=== PATIENT | male | born 1945 | race Caucasian/White ===

== ENCOUNTER → 2019-07-04 08:53 | Outpatient (BNVA) | payer MEDICARE, OTHER, SELFPAY | PROVIDERS: Family Provider Family Medicine; PCP Family Medicine; Visit Provider Internal Medicine Rheumatology | DX: M06.9 Rheumatoid arthritis, unspecified (principal); M10.9 Gout, unspecified; Z79.899 Other long term (current) drug therapy; M15.9 Polyosteoarthritis, unspecified | CPT/HCPCS: 99213 ==

== ENCOUNTER → 2019-11-08 08:28 | Outpatient (BNVA) | payer MEDICARE, OTHER, SELFPAY | PROVIDERS: Family Provider Family Medicine; PCP Family Medicine; Visit Provider Internal Medicine Cardiovascular Disease | DX: E78.2 Mixed hyperlipidemia (principal); I25.10 Atherosclerotic heart disease of native coronary artery without angina pectoris; I10 Essential (primary) hypertension; I65.23 Occlusion and stenosis of bilateral carotid arteries; M06.00 Rheumatoid arthritis without rheumatoid factor, unspecified site; Z79.899 Other long term (current) drug therapy; Z51.81 Encounter for therapeutic drug level monitoring | CPT/HCPCS: 80053; 80061; 82248; 85007; 85027; 85651; 86140; 86480 ==

== ENCOUNTER → 2019-11-28 09:19 | Outpatient (BNVA) | payer MEDICARE, OTHER, SELFPAY | PROVIDERS: Family Provider Family Medicine; PCP Family Medicine; Visit Provider Internal Medicine Rheumatology | DX: M10.9 Gout, unspecified (principal); Z79.899 Other long term (current) drug therapy; M19.90 Unspecified osteoarthritis, unspecified site | CPT/HCPCS: 36415; 84550; 99214 ==

== ENCOUNTER 2019-11-29 12:48 | Outpatient (CLI) | payer MEDICARE, OTHER, SELFPAY ==
--- NOTE | 2019-11-29 12:56 | XR_ITS ---
WS: [id number] LEFT FOOT: 3 VIEW(S) TECHNIQUE: AP, oblique and lateral. HISTORY: rheumatoid arthritis COMPARISON: 01/03/2009 No acute fracture or dislocation. Very subtle lucencies along the first metatarsal head. Mild interphalangeal joint space narrowing. Calcifications along the plantar aponeurosis and extensive calcifications in the posterior and anteri or tibial arteries. Mild soft tissue edema around the foot. XR/XR foot LT min 3V* [id number] IMPRESSION: 1. Suspicious for very early changes of erosions along the first metatarsal he ad. 2. Extensive peripheral arterial disease and soft tissue edema.
--- NOTE | 2019-11-29 12:56 | XR_ITS ---
WS: [id number] RIGHT HAND: 3 VIEW(S) TECHNIQUE: PA, oblique and lateral. HISTORY: rheumatoid arthritis COMPARISON: 01/03/2009 Severe narrowing of the interphalangeal joint spaces. There is joint space narrowing bony hypertrophy and sclerosis. No erosions. Severe osteoarthritis at the first carpometacarpal joint. There is an er osion at the ulnar styloid. Degenerative changes of osteoarthritis at the radiocarpal joint. Hypertro phic osteophytes at the metacarpal heads. No osteopenia. XR/XR hand RT min 3V* [id number] IMPRESSION: 1. Advanced changes throughout the wrist and hand of osteoarthritis. 2. Erosions at the ulnar styloid can be seen with rheumatoid arthritis.
--- NOTE | 2019-11-29 12:56 | XR_ITS ---
WS: [id number] RIGHT FOOT: 3 VIEW(S) TECHNIQUE: AP, oblique and lateral. HISTORY: rheumatoid arthritis COMPARISON: 01/03/2009 Lucencies consistent with small erosions along the head of the first metatarsal. There is an addition al erosion at the base of the proximal first phalanx. Mild interphalangeal joint space narrowing. Normal tarsal/metatarsal alignment. No soft tissue abnormality or bone destruction. Small calcaneal spur. Vascular calcifications and soft tissue edema. XR/XR foot RT min 3V* [id number] IMPRESSION: 1. Suspicious for early erosions involving the first metatarsophalangeal joint secondary to rheumatoid arthritis. New since 2008. 2. Diffuse soft tissue edema and extensive peripheral arterial disease.
--- NOTE | 2019-11-29 12:56 | XR_ITS ---
WS: [id number] LEFT HAND: 3 VIEW(S) TECHNIQUE: PA, oblique and lateral. HISTORY: rheumatoid arthritis COMPARISON: None available. No acute fracture or dislocation. Severe interphalangeal joint space narrowing. Moderate narrowing of the first carpometacarpal joint. Deformity at the radial styloid is probably from an old healed fracture. Small osseous densities dist al to the ulna from old injury. Sclerotic changes with volume loss involving the scaphoid and lunate. Osteonecrosis of the proximal scaphoid. Small erosion involving the second metacarpal head. XR/XR hand LT min 3V* [id number] IMPRESSION: 1. Advanced degenerative changes of osteoarthritis at the wrist and hand. 2. Very early erosion at the second metacarpal head. 3. Prior injury with healing involving the radial styloid, osteonecrosis of th e proximal scaphoid and volume loss of the lunate. These are all chronic findin gs.
== END 2019-11-29 12:49 | disposition home or self-care (01) ==
LOC: RADWPI 12:53
PROVIDERS: Family Provider Family Medicine; PCP Family Medicine; Visit Provider Internal Medicine Rheumatology
DX: M06.9 Rheumatoid arthritis, unspecified (principal); M85.841 Other specified disorders of bone density and structure, right hand; M85.842 Other specified disorders of bone density and structure, left hand; M87.842 Other osteonecrosis, left hand
CPT/HCPCS: 73130; 73630

== ENCOUNTER 2020-04-28 04:31 | Emergency (ER) | payer MEDICARE, OTHER, SELFPAY ==
[2020-04-28 04:35] VITALS: BP 241/131; PULSE 70; RESP 18; TEMP 36.7; O2SAT 97; BMI 30.4
--- NOTE | 2020-04-28 04:59 | XRR_ITS ---
PROCEDURE INFORMATION: Exam: XR Chest, 1 View Exam date and time: 04/28/2020 5:07 AM Age: 75 years old Clinical indication: Other: HTN TECHNIQUE: Imaging protocol: XR of the chest Views: 1 view. COMPARISON: CR Chest 2 views* [id number] 01/25/2019 10:26 AM FINDINGS: Lungs: Lungs are well aerated without a focal area of consolidation. Pleural space: Unremarkable. No pleural effusion. No pneumothorax. Heart/Mediastinum: The cardiac silhouette appears enlarged, some of which is magnification related to the AP projection. Bones/joints: Unremarkable. XR/XR chest 1V portable [id number] IMPRESSION: Lungs are well aerated without a focal area of consolidation.
--- NOTE | 2020-04-28 05:00 | ECG_ITS ---
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
[2020-04-28 05:10] VITALS: BP 226/126; PULSE 59; RESP 18; O2SAT 97
[2020-04-28] MEDS: nitroglycerin 1 gm/inch oint Pkt 2 INCH TOPICAL (05:18)
[2020-04-28] MEDS: FUROsemide 10 mg/mL SDV 10mL 60 MG IVP (05:20)
[2020-04-28 05:22] LABS: Basophils % 0.7 %; Eosinophils # 0.1 10^3/uL (0.0-0.8); Eosinophils % 1.5 %; Hemoglobin 14.2 g/dL (11.7-16.6); Lymphocytes # 1.5 10^3/uL (0.8-4.8); Lymphocytes % 24.5 %; Mean Corpuscular HGB Conc 31.6 g/dL (30.0-36.0); Mean Corpuscular Hemoglobin 28.9 pg (28.0-34.0); Mean Corpuscular Volume 91.6 fL (80-94); Monocytes # 0.5 10^3/uL (0.2-0.9); Monocytes % 7.8 %; Neutrophils # 4.01 10^3/uL (1.8-7.7); Neutrophils % 65.3 %; Nucleated Red Blood Cells % 0 %; Platelet Count 142 10^3/cmm (130-400); Red Blood Count 4.91 10^6/uL (4.1-5.3); Red Cell Distribution Width 14.2 % (12.1-15.1); White Blood Count 6.1 10^3/uL (4.0-10.0)
[2020-04-28] MEDS: enalaprilat 1.25 mg/mL Inj IVP (05:22)
[2020-04-28 05:34] LABS: INR 0.96 (0.8-1.2)
[2020-04-28 05:46] LABS: Troponin(5th) Baseline 12 ng/L (0-15)
[2020-04-28 05:51] LABS: Alanine Aminotransferase 12 U/L (0-41); Albumin Level 4.4 g/dL (3.5-5.2); Alkaline Phosphatase 89 IU/L (40-130); Anion Gap 13.1 (5-19); Aspartate Amino Transferase 19 U/L (0-40); Blood Urea Nitrogen 9 mg/dL (8-23); Calcium 9.2 mg/dL (8.5-10.5); Carbon Dioxide 30 mmol/L (22-29); Chloride 101 mmol/L (98-107); Creatine Phosphokinase 147 U/L (39-308); Globulin 2.8 g/dL (1.3-4.6); Glucose 114 mg/dL (65-115); NT Pro B Type Natriuretic Pept 118 pg/mL (0-450); Osmolality Calculated 290 mOsm/kg (285-295); Potassium 4.1 mmol/L (3.5-5.1); Sodium 140 mmol/L (136-145); Total Bilirubin 0.5 mg/dL (0.15-1.2); Total Protein 7.2 g/dL (6.6-8.7)
[2020-04-28 05:52] VITALS: BP 184/108; PULSE 56; RESP 17; O2SAT 98
[2020-04-28 06:05] VITALS: BP 156/88; PULSE 58; RESP 13; O2SAT 98
--- NOTE | 2020-04-28 06:20 | ED_ITS ---
HPI - General Adult General: Chief complaint: General Medical Stated complaint: high bp Time Seen by Provider: 04/28/20 04:59 History of Present Illness: HPI narrative: 75-year-old male who says that he can feel his pulse in his ears this morning. He denies any headache, visual changes, chest discomfort, shortness of breath. He notes that because of this, he checked his blood pressure and it was very high. He says that his blood pressures been high on and off the past several days at home. His blood pressure was registering over 220 systolic on his home monitor. Onset (ago): day(s) Location: head Radiation: non-radiation Severity: mild Quality: other Pain Consistency: constant Relieving factors: none Exacerbating factors: none Associated symptoms: Deny chest pain, confusion, cough, diaphoresis, dyspnea, fevers/chills, rash or vomiting Treatments prior to arrival: other Review of Systems Const: Denies: diaphoresis Eyes: Denies: change in vision or blurry vision ENMT: Denies: odynophagia, swelling of lips/tongue, bleeding gums, dental pain, change in hearing, epistaxis, post nasal drip or sinus pain Card: Denies: chest pain Resp: Denies: dyspnea GI: Denies: vomiting : Denies: difficulty urinating, dysuria, urinary frequency, urinary urgency or hematuria Musc: Denies: neck pain, back pain, joint redness or joint warmth Skin/Breast: Denies: rash, pruritus or erythema Neuro: Denies: confusion Psych: Denies: anxiety, visual hallucinations or auditory hallucinations PFS ED PFSH: Medical History (Updated 04/28/20 @ 06:29 by Jace Isidro DO) Atherosclerotic heart disease of [place] coronary artery without angina pectoris Bilateral carotid artery stenosis CAD (coronary artery disease) FHx: total knee replacement Gout, arthritis High risk medication use Hyperlipidemia Hypertension Inflammatory arthritis Osteoarthritis Osteoarthritis involving multiple joints on both sides of body Other specified rheumatoid arthritis, multiple sites Seronegative rheumatoid arthritis Surgical History (Updated 11/28/19 @ 10:30 by Lester Pool MD) H/O carotid endarterectomy RIGHT SIDE 04/2019 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 Family History (Updated 11/28/19 @ 09:42 by Linda Adams LPN) Other CAD (coronary artery disease) Family history of premature coronary artery disease Hypertension Stroke Denies family history of Rheumatoid arthritis Lupus Social History Smoking and tobacco status: former smoker Quit status (tobacco): has quit using tobacco Year quit tobacco: 1979 Alcohol intake: never Marital status: History of recent travel: No (07/04/2019) Physical Exam Const: GENERAL APPEARANCE: well developed ORIENTATION/CONSCIOUSNESS: Yes oriented to person, Yes oriented to place and Yes oriented to time HENMT: COMMON NORMALS: normocephalic, external ears normal and Normal external nose present HEAD & SCALP: normocephalic NOSE: Normal external nose present and No nasal discharge present EXTERNAL EAR: Yes external ears normal MOUTH: tongue normal TEETH & GINGIVA: no abnormal tooth and associated gingiva THROAT: posterior oropharynx normal; no peritonsillar mass Eye: COMMON NORMALS: Equal, round and reactive pupils present and EOMs intact bilaterally EYELID: eyelids normal CONJUNCTIVA: Yes conjunctival abnormal positive bilateral conjunctival icterus (mild) PUPIL: Yes Equal, round and reactive pupils present Neck/C-Spine: COMMON NORMALS: full ROM GENERAL: No tracheal deviation CERVICAL SPINE: Yes normal cervical lordosis and No Cervical spine tenderness Chest: COMMONS NORMALS: normal inspection of the chest CHEST: No tenderness Resp: COMMON NORMALS: clear to auscultation bilaterally EFFORT & INSPECTION: No tachypneic, No respiratory distress, No retractions, No uses accessory muscles and No tracheal deviation AUSCULTATION: clear to auscultation bilaterally, no rhonchi, no wheezes and lung sounds not diminished Cardio: COMMON NORMALS: regular rate and regular rhythm RATE: regular rate RHYTHM: regular rhythm HEART SOUNDS: no murmurs PERIPHERAL PULSES: radial pulses present GI: INSPECTION: No abdominal distension AUSCULTATION: No Hyperactive bowel sounds present and No Hypoactive bowel sounds present PALPATION: No Guarding due to palpation present (GI) and No Rigid due to palpation PERCUSSION: no dullness to percussion and no tympanic to percussion Neuro: SENSORIUM/ORIENTATION: Yes oriented to person, Yes oriented to place and Yes oriented to time Psych: COMMON NORMALS: mental status grossly normal Skin: COMMON NORMALS: no rashes or lesions noted GENERAL SKIN EXAM: no rashes or lesions noted Course Vital Signs: Vital signs: Vital Signs Temperature 98.1 F 04/28/20 04:35 Pulse Rate 58 L 04/28/20 06:05 Respiratory Rate 13 04/28/20 06:05 Blood Pressure 156/88 04/28/20 06:05 Pulse Oximetry 98 04/28/20 06:05 MDM - General Adult MDM Narrative: Medical decision making narrative: 75-year-old male with hypertension at home. He is neurologically intact. He has no chest pain. His chest x-ray does not reveal pulmonary edema. His EKG shows a sinus rhythm, bradycardia with a normal axis. No ST changes. His first troponin is not elevated. Blood work is otherwise benign. He will be allowed home with treatment for his blood pressure. Lab Data: Labs: Lab Results 04/28/20 04/28/20 04/28/20 Range/Units 05:16 05:16 05:16 WBC 6.1 (4.0-10.0) 10^3/ uL RBC 4.91 (4.1-5.3) 10^6/u L Hgb 14.2 (11.7-16.6) g/dL Hct 45.0 (42.0-52.0) % MCV 91.6 (80-94) fL MCH 28.9 (28.0-34.0) pg MCHC 31.6 (30.0-36.0) g/dL RDW 14.2 (12.1-15.1) % Plt Count 142 (130-400) 10^3/c mm MPV 13.0 H (7.4-10.4) fL Neut % (Auto) 65.3 % Lymph % (Auto) 24.5 % [place] % (Auto) 7.8 % Eos % (Auto) 1.5 % Baso % (Auto) 0.7 % Neut # (Auto) 4.01 (1.8-7.7) 10^3/u L Lymph # (Auto) 1.5 (0.8-4.8) 10^3/u L [place] # (Auto) 0.5 (0.2-0.9) 10^3/u L Eos # (Auto) 0.1 (0.0-0.8) 10^3/u L Baso # (Auto) 0.0 (0.0-0.1) 10^3/u L Nucleated RBC % (a uto) 0 % Nucleated RBCs # 0.0 /100WBC PT 13.10 (12.1-14.9) SECO NDS INR 0.96 (0.8-1.2) Sodium 140 (136-145) mmol/L Potassium 4.1 (3.5-5.1) mmol/L Chloride 101 (98-107) mmol/L Carbon Dioxide 30 H (22-29) mmol/L Anion Gap 13.1 (5-19) BUN 9 (8-23) mg/dL Creatinine 0.7 (0.7-1.2) mg/dL GFR Calculation Not Reportable Glucose 114 (65-115) mg/dL Calculated Osmolal ity 290 (285-295) mOsm/k g Calcium 9.2 (8.5-10.5) mg/dL Total Bilirubin 0.5 (0.15-1.2) mg/dL AST 19 (0-40) U/L ALT 12 (0-41) U/L Alkaline Phosphata se 89 (40-130) IU/L Creatine Kinase 147 (39-308) U/L Troponin T Baselin e (0-15) ng/L NT-Pro-B Natriuret Pep 118 (0-450) pg/mL Total Protein 7.2 (6.6-8.7) g/dL Albumin 4.4 (3.5-5.2) g/dL Globulin 2.8 (1.3-4.6) g/dL Urine Color (Yellow) Urine Appearance (CLEAR) Urine pH (5-7) Ur Specific Gravit y (1.005-1.030) Urine Protein (Negative) Urine Glucose (UA) (Normal) Urine Ketones (Negative) Urine Blood (Negative) Urine Nitrate (Negative) Urine Bilirubin (Negative) Urine Urobilinogen (Negative) mg/dL Ur Leukocyte Shannon ase (Negative) 04/28/20 04/28/20 Range/Units 05:16 05:48 WBC (4.0-10.0) 10^3/ uL RBC (4.1-5.3) 10^6/u L Hgb (11.7-16.6) g/dL Hct (42.0-52.0) % MCV (80-94) fL MCH (28.0-34.0) pg MCHC (30.0-36.0) g/dL RDW (12.1-15.1) % Plt Count (130-400) 10^3/c mm MPV (7.4-10.4) fL Neut % (Auto) % Lymph % (Auto) % [place] % (Auto) % Eos % (Auto) % Baso % (Auto) % Neut # (Auto) (1.8-7.7) 10^3/u L Lymph # (Auto) (0.8-4.8) 10^3/u L [place] # (Auto) (0.2-0.9) 10^3/u L Eos # (Auto) (0.0-0.8) 10^3/u L Baso # (Auto) (0.0-0.1) 10^3/u L Nucleated RBC % (a uto) % Nucleated RBCs # /100WBC PT (12.1-14.9) SECO NDS INR (0.8-1.2) Sodium (136-145) mmol/L Potassium (3.5-5.1) mmol/L Chloride (98-107) mmol/L Carbon Dioxide (22-29) mmol/L Anion Gap (5-19) BUN (8-23) mg/dL Creatinine (0.7-1.2) mg/dL GFR Calculation Glucose (65-115) mg/dL Calculated Osmolal ity (285-295) mOsm/k g Calcium (8.5-10.5) mg/dL Total Bilirubin (0.15-1.2) mg/dL AST (0-40) U/L ALT (0-41) U/L Alkaline Phosphata se (40-130) IU/L Creatine Kinase (39-308) U/L Troponin T Baselin e 12 (0-15) ng/L NT-Pro-B Natriuret Pep (0-450) pg/mL Total Protein (6.6-8.7) g/dL Albumin (3.5-5.2) g/dL Globulin (1.3-4.6) g/dL Urine Color Straw (Yellow) Urine Appearance Clear (CLEAR) Urine pH 7 (5-7) Ur Specific Gravit y 1.005 (1.005-1.030) Urine Protein Neg (Negative) Urine Glucose (UA) Norm (Normal) Urine Ketones Negative (Negative) Urine Blood Neg (Negative) Urine Nitrate Negative (Negative) Urine Bilirubin Neg (Negative) Urine Urobilinogen Norm (Negative) mg/dL Ur Leukocyte Shannon ase Negative (Negative) Discharge Plan Discharge Patient Disposition: Home Clinical Impression: Hypertension Qualifiers: Hypertension type: essential hypertension Qualified Code(s): I10 - Essential (primary) hypertension Condition: Stable Prescriptions: New lisinopril 20 mg tablet 20 mg PO DAILY Qty: 30 RF: 0 No Action carvedilol 25 mg tablet 25 mg PO BID RF: 0 aspirin [Adult Aspirin Regimen] 81 mg tablet,delayed release (DR/EC) 81 mg PO DAILY RF: 0 omeprazole 20 mg capsule,delayed release(DR/EC) 20 mg PO DAILY RF: 0 simvastatin 80 mg tablet 80 mg PO DAILY Qty: 90 RF: 3 hydroxychloroquine 200 mg tablet 200 mg PO BID Qty: 60 RF: 5 Discharge Orders: Discharge Order (Routine); Ordered 04/28/20 Ordered By: Jace Isidro Referrals: Nicolás Alegre MD [Primary Care Provider] - 4-7 days Discharge Diet: Advance as tolerated Discharge Activity: Increase activity as tolerated Patient Instructions: Chronic Hypertension (ED) Activity Restrictions/Additional Instructions: Continue to check your blood pressure twice daily. Take the medication prescribed. Return to the emergency department for shortness of breath, chest discomfort, headache, mental status changes, weakness, other concerning symptoms. Coding Level of Care Code ED Correspondence Clerk for Tracy Mackay Exam Comprehensive
[2020-04-28 06:21] LABS: Add Urine Microscopic? NO
--- NOTE | 2020-04-28 06:21 | PC.NURSE ---
Blood pressure noted to be lower; nitro paste wiped off.
[2020-04-28 06:25] LABS: Bilirubin Urine Neg (Negative); Blood Urine Neg (Negative); Glucose Urine UA Norm (Normal); Ketones Urine Negative (Negative); Leukocyte Esterase Urine Negative (Negative); Nitrate Urine Negative (Negative); Protein Urine Neg (Negative); Specific Gravity, Urine 1.005 (1.005-1.030); Urine Appearance Clear (CLEAR); Urine Color Straw (Yellow); Urobilinogen Urine Norm (Negative); pH Urine 7 (5-7)
[2020-04-28 06:44] VITALS: BP 131/89; PULSE 63; RESP 18; O2SAT 98
== END 2020-04-28 06:46 | disposition home or self-care (01) ==
PROVIDERS: Emergency Provider Emergency Medicine; PCP Family Medicine
DX: I10 Essential (primary) hypertension (principal); Z79.82 Long term (current) use of aspirin; I25.10 Atherosclerotic heart disease of native coronary artery without angina pectoris; E78.5 Hyperlipidemia, unspecified; Z87.891 Personal history of nicotine dependence
CPT/HCPCS: 12345; 71045; 80053; 81003; 82550; 83880; 84484; 85025; 85610; 93005; 96374; 96375; 99283; J1940; J3490

== ENCOUNTER → 2020-05-06 08:15 | Outpatient (BNVA) | payer MEDICARE, OTHER, SELFPAY | PROVIDERS: PCP Family Medicine; Visit Provider Internal Medicine Cardiovascular Disease | DX: E78.2 Mixed hyperlipidemia (principal) | CPT/HCPCS: 80061 ==

== ENCOUNTER → 2020-05-27 14:59 | Outpatient (BNVA) | payer MEDICARE, OTHER, SELFPAY | PROVIDERS: PCP Family Medicine; Visit Provider Internal Medicine Rheumatology | DX: M15.9 Polyosteoarthritis, unspecified (principal); Z79.899 Other long term (current) drug therapy; Z87.891 Personal history of nicotine dependence; M10.9 Gout, unspecified | CPT/HCPCS: 99213 ==

== ENCOUNTER 2020-06-12 07:56 | Outpatient (CLI) | payer MEDICARE, OTHER, SELFPAY ==
--- NOTE | 2020-06-12 08:00 | USCV_ITS ---
Nicolás Lazo Age: 75 Gender: M : 1945 Exam Date: 06/12/2020 08:22 Ordering Phys: Eze Camilo MD ([email or web address]) Technologist: Nicky Ruiz [place] [facility] [place]ication: STENOSIS Risk Factors: Previous Vascular Surgery: BILAT Right Brachial BP: / Left Brachial BP: / Right Left Velocity (cm/s) Spectral Plaque Velocity (cm/s) Spectral Plaque Syst/Diast Broadening Syst/Diast Broadening 87.10/ 30.90 Prox CCA 86.00 / 25.40 88.20/ 22.10 Mid CCA 87.10 / 28.70 90.40/ 26.50 Distal CCA 93.70 / 30.90 87.10/ 23.20 Prox ICA 68.40 / 17.60 81.60/ 26.50 Mid ICA 81.60 / 26.50 75.00/ 24.30 Distal ICA 84.90 / 32.00 118.00 ECA 76.10 0.93 ICA/CCA 0.97 Antegrade Vertebral Antegrade 28.70/ 11.00 cm/s 55.10/ 19.80 cm/s FINDINGS Minimal plaques at the bifurcations bilaterally Intimal thickening in the common carotid and internal carotid arteries bilaterally Antegrade flow in the vertebral arteries bilaterally Normal Doppler flow velocities in the external carotid arteries bilaterally CONCLUSIONS Minimal plaques at the bifurcations bilaterally with no significant stenosis. Intimal thickening in the common carotid and internal carotid arteries bilaterally No significant stenosis or any unstable lesions based on the above findings Dr Eze Camilo MD [facility] (Electronically Signed) Final Date: 12 June 2020 18:53 S
== END 2020-06-12 07:57 | disposition home or self-care (01) ==
LOC: US 08:02
PROVIDERS: PCP Family Medicine; Visit Provider Internal Medicine Cardiovascular Disease
DX: I65.23 Occlusion and stenosis of bilateral carotid arteries (principal)
CPT/HCPCS: 93880

== ENCOUNTER → 2020-10-07 09:45 | Outpatient (BNVA) | payer MEDICARE, OTHER, SELFPAY | PROVIDERS: PCP Family Medicine; Visit Provider Internal Medicine Rheumatology | DX: M10.9 Gout, unspecified (principal); M06.00 Rheumatoid arthritis without rheumatoid factor, unspecified site; Z79.899 Other long term (current) drug therapy; M15.9 Polyosteoarthritis, unspecified; C43.9 Malignant melanoma of skin, unspecified; Z87.891 Personal history of nicotine dependence | CPT/HCPCS: 99214 ==

== ENCOUNTER → 2021-01-07 09:13 | Outpatient (BNVA) | payer MEDICARE, OTHER, SELFPAY | PROVIDERS: PCP Family Medicine; Visit Provider Internal Medicine Rheumatology | DX: M06.00 Rheumatoid arthritis without rheumatoid factor, unspecified site (principal); M10.9 Gout, unspecified; M15.9 Polyosteoarthritis, unspecified; Z79.899 Other long term (current) drug therapy | CPT/HCPCS: 36415; 80076; 82565; 84550; 85025; 86140 ==

== ENCOUNTER → 2021-01-20 09:41 | Outpatient (BNVA) | payer MEDICARE, OTHER, SELFPAY | PROVIDERS: PCP Family Medicine; Visit Provider Internal Medicine Rheumatology | DX: M10.9 Gout, unspecified (principal); M06.00 Rheumatoid arthritis without rheumatoid factor, unspecified site; M15.9 Polyosteoarthritis, unspecified; Z79.899 Other long term (current) drug therapy; D69.6 Thrombocytopenia, unspecified; Z96.651 Presence of right artificial knee joint; Z87.891 Personal history of nicotine dependence | CPT/HCPCS: 99214 ==

== ENCOUNTER → 2021-04-21 09:23 | Outpatient (BNVA) | payer MEDICARE, OTHER, SELFPAY | PROVIDERS: PCP Family Medicine; Visit Provider Internal Medicine Rheumatology | DX: D69.6 Thrombocytopenia, unspecified (principal); M19.90 Unspecified osteoarthritis, unspecified site; Z79.899 Other long term (current) drug therapy | CPT/HCPCS: 36415; 85049 ==

== ENCOUNTER → 2021-04-22 16:48 | Outpatient (BNVA) | payer MEDICARE, OTHER, SELFPAY | PROVIDERS: PCP Family Medicine; Visit Provider Internal Medicine Rheumatology | DX: M19.90 Unspecified osteoarthritis, unspecified site (principal); D69.6 Thrombocytopenia, unspecified; Z79.899 Other long term (current) drug therapy | CPT/HCPCS: 85049 ==

== ENCOUNTER → 2021-05-14 08:57 | Outpatient (BNVA) | payer MEDICARE, OTHER, SELFPAY | PROVIDERS: PCP Family Medicine; Visit Provider Internal Medicine Cardiovascular Disease | DX: E78.2 Mixed hyperlipidemia (principal); E78.5 Hyperlipidemia, unspecified | CPT/HCPCS: 80061 ==

== ENCOUNTER 2021-07-07 15:26 | Outpatient (CLI) | payer MEDICARE, OTHER, SELFPAY ==
--- NOTE | 2021-07-07 15:45 | USCV_ITS ---
Nicolás Lazo Age: 76 Gender: M : 1945 Exam Date: 07/07/2021 15:52 Ordering Phys: Eze Camilo MD ([email or web address]) Technologist: CHIOMA [place]am [place] [facility] [place] Indication: DYSPNEA BP: / HR: 64 Rhythm: Sinus Technical Quality: Adequate MEASUREMENTS (Male / Female) Normal Values 2D ECHO LV Diastolic Diameter PLAX 3.7 cm 4.2 - 5.9 / 3.9 - 5.3 cm LV Systolic Diameter PLAX 2.4 cm IVS Diastolic Thickness 1.3 cm 0.6 - 1.0 / 0.6 - 0.9 cm IVS Systolic Thickness 1.7 cm LVPW Diastolic Thickness 1.2 cm 0.6 - 1.0 / 0.6 - 0.9 cm LVPW Systolic Thickness 1.7 cm LVOT Diameter 2.0 cm LV Ejection Fraction 2D Teich 67.1 % LV Ejection Fraction MOD 2C 64.8 % LV Ejection Fraction 2C AL 68.5 % LA Diameter 3.1 cm LA Width 3.6 cm LA Height 5.9 cm RA Width 3.5 cm RA Height 4.7 cm Aorta at Sinotubular Diameter 2.5 cm M-MODE Aortic Annulus Diameter 2.7 cm LA Ao Ratio MM 1.1 MV E Point Septal Separation 0.8 cm DOPPLER AV Peak Velocity 253.0 cm/s LVOT Peak Velocity 129.0 cm/s AV Area Cont Eq vti 1.5 cm squared AV Area Cont Eq pk 1.6 cm squared MV Area PHT 3.5 cm squared Mitral E to A Ratio 0.7 MV E' Velocity 40.0 cm/s Mitral E to MV E' Ratio 10.6 Mitral E to LV E' Lateral Ratio 10.7 Mitral E to LV E' Septal Ratio 10.6 RV Acceleration Time 0.1 s RV Ejection Time 0.3 s RV AcT/ET 0.5 FINDINGS Left Ventricle Normal left ventricular size and systolic function, EF 62 %. No regional wall motion abnormalities. Mild left ventricular hypertrophy. Grade I/IV diastolic dysfunction (abnormal relaxation filling pattern), normal to mildly elevated filling pressures. Right Ventricle The right ventricle is normal in size and function. Right Atrium The right atrium is normal in size. Left Atrium Mildly increased left atrial size. Mitral Valve Mild mitral annular calcification. Trace mitral valve regurgitation. Aortic Valve Thickened aortic valve. Moderate aortic valve calcification. Mild aortic valve stenosis, mean gradient 11.3 mmHg, CELINA 1.5 cm squared. The peak gradient was 26 mmHg Tricuspid Valve Trace tricuspid valve regurgitation. Pulmonic Valve Pulmonic valve not well visualized. Pericardium Normal pericardium without effusion. Aorta Normal ascending aorta dimension. CONCLUSIONS Normal left ventricular size and systolic function, EF 62 %. No regional wall motion abnormalities. Mild left ventricular hypertrophy. Grade I/IV diastolic dysfunction (abnormal relaxation filling pattern), normal to mildly elevated filling pressures. Mild aortic valve stenosis, mean gradient 11.3 mmHg, CELINA 1.5 cm squared. The peak gradient was 26 mmHg. Mildly increased left atrial size. Trace of mitral and tricuspid regurgitation There is no pericardial effusion. No previous study is available for comparison. Dr Eze Camilo MD [facility] (Electronically Signed) Final Date: 08 July 2021 09:36 S
== END 2021-07-07 15:27 | disposition home or self-care (01) ==
LOC: RAD 15:29
PROVIDERS: PCP Family Medicine; Visit Provider Internal Medicine Cardiovascular Disease
DX: M06.00 Rheumatoid arthritis without rheumatoid factor, unspecified site (principal); Z79.899 Other long term (current) drug therapy; R06.00 Dyspnea, unspecified; I35.0 Nonrheumatic aortic (valve) stenosis
CPT/HCPCS: 36415; 80076; 82565; 85025; 86140; 93306

== ENCOUNTER → 2021-07-14 10:05 | Outpatient (BNVA) | payer MEDICARE, OTHER, SELFPAY | PROVIDERS: PCP Family Medicine; Visit Provider Internal Medicine Rheumatology | DX: M10.9 Gout, unspecified (principal); Z79.899 Other long term (current) drug therapy; M19.041 Primary osteoarthritis, right hand; M19.042 Primary osteoarthritis, left hand; Z87.891 Personal history of nicotine dependence | CPT/HCPCS: 99214 ==

== ENCOUNTER 2021-07-19 02:01 | Emergency (ER) | payer MEDICARE, OTHER, SELFPAY ==
[2021-07-19] VITALS (8 sets, daily range): BP systolic 149–209; BP diastolic 91–115; PULSE 52–95; RESP 16–18; TEMP 36.6; O2SAT 95–98; BMI 30.4
[2021-07-19 02:25] LABS: Glucose Point of Care 107 mg/dL (70-110)
--- NOTE | 2021-07-19 02:27 | XRR_ITS ---
PROCEDURE INFORMATION: Exam: XR Chest Exam date and time: 07/19/2021 2:27 AM Age: 76 years old Clinical indication: Other: HTN; Additional info: HTN stroke symptoms TECHNIQUE: Imaging protocol: XR of the chest. Views: 1 view. COMPARISON: CR XR chest 1V portable [id number] 04/28/2020 5:10 AM FINDINGS: Lungs: No CHF/pulmonary edema. Visible lungs appear essentially clear. Pleural spaces: No visible pneumothorax. No definite pleural fluid. Heart/Mediastinum: Heart size is upper normal/mildly prominent, unchanged. Bones/joints: No significant acute finding. XR/XR chest 1V portable [id number] IMPRESSION: 1. No definite CHF or pneumonia. 2. Other findings discussed above.
--- NOTE | 2021-07-19 02:27 | CTR_ITS ---
PROCEDURE INFORMATION: Exam: CT Head Without Contrast Exam date and time: 07/19/2021 2:27 AM Age: 76 years old Clinical indication: Other: HTN; Additional info: Symptoms of acute stroke TECHNIQUE: Imaging protocol: Computed tomography of the head without contrast. Radiation optimization: All CT scans at this facility use at least one of these dose optimization techniques: automated exposure control; mA and/or kV adjustment per patient size (includes targeted exams where dose is matched to clinical indication); or iterative reconstruction. COMPARISON: CTA Head/Neck [id number] 04/09/2016 1:19 PM RADIATION DOSE METRICS: Total DLP (mGy-cm): 950.17 FINDINGS: Brain: No acute intracranial hemorrhage or mass effect. There is decreased attenuation in the periventricular white matter, likely from microvascular disease. Suspect two small old lacunar infarcts in the left basal ganglia/internal capsule region. The more subtle of the 2 areas seen in the anterior limb of the left internal capsule might possibly represent a subacute infarct. Please correlate clinically. No definite acute infarct by CT. However, MRI could be more sensitive/specific for acute infarct detection, and also for distinguishing between old and subacute infarcts, as clinically directed. Cerebral ventricles: Ventricle size is normal for age. Paranasal sinuses: Included paranasal sinuses are essentially clear. Mastoid air cells: No significant acute finding. Vasculature: Vascular calcifications in the internal carotid and vertebral basilar systems. Bones/joints: No definite acute skull fracture. Soft tissues: No significant acute finding. CT/CT head wo con* [id number] IMPRESSION: 1. No acute intracranial hemorrhage or mass effect. 2. Suspect two small old lacunar infarcts in the left basal ganglia/internal capsule region, see above discussion. 3. No definite acute infarct by CT, see above. 4. Other findings discussed above.
--- NOTE | 2021-07-19 02:28 | ECG_ITS ---
[facility] Test Date: 2021-07-19 Pat Name: Nicolás Lazo Department: Room: Gender: Male Sky Cap: : 1945 Requested By: Jace Taylor Order Number: [id number] Doug MD: Eze Camilo M.D. Measurements Intervals [place] Rate: 74 P: 21 FL: 126 QRS: 15 QRSD: 95 T: 54 QT: 399 QTc: 444 Interpretive Statements SINUS RHYTHM NONSPECIFIC ST & T-WAVE ABNORMALITY Compared to ECG 04/28/2020 05:08:06 T-wave abnormality now present Sinus bradycardia no longer present Electronically Signed On 07-19-2021 20:04:03 SECURITIES ATTORNEY by Eze Camilo M.D. [id number]
[2021-07-19] MEDS: labetalol 5 mg/mL SDV 20mL 20 MG IVP ×2 (02:30→03:05)
[2021-07-19 02:43] LABS: Basophils % 0.7 %; Eosinophils # 0.1 10^3/uL (0.0-0.8); Eosinophils % 1.8 %; Hematocrit 41.7 % (42.0-52.0); Hemoglobin 13.8 g/dL (11.7-16.6); Lymphocytes # 2.1 10^3/uL (0.8-4.8); Lymphocytes % 37.1 %; Mean Corpuscular HGB Conc 33.1 g/dL (30.0-36.0); Mean Corpuscular Volume 90.7 fl (80-94); Mean Platelet Volume 12.8 fL (7.4-10.4); Monocytes # 0.6 10^3/uL (0.2-0.9); Monocytes % 10.8 %; Neutrophils # 2.76 10^3/uL (1.8-7.7); Neutrophils % 49.4 %; Nucleated Red Blood Cells % 0 %; Platelet Count 118 10^3/cmm (130-400); Red Cell Distribution Width 14.5 % (12.1-15.1); White Blood Count 5.6 10^3/uL (4.0-10.0)
--- NOTE | 2021-07-19 02:48 | W.ED.GENADLT ---
HPI - General Adult General: Chief complaint: General Medical Stated complaint: BLood Pressure Over 200\ Rt side tingeling Time Seen by Provider: 07/19/21 02:19 History of Present Illness: HPI narrative: 76-year-old gentleman with a history of hypertension. He presents with paresthesias to his face and left upper extremity. These are resolved now. He went to bed at 10 PM without symptoms, and awoke at 1 AM with symptoms. He presented here around 2 AM. Again symptoms are now resolved. He has a history of hypertension, and took his medicine last night. He had a brief episode of chest pain, which is resolved also. His blood pressure is quite high in triage. No history of known stroke, or heart disease. Onset (ago): hour(s) Location: head Radiation: non-radiation Quality: other Pain Consistency: other Relieving factors: other Associated symptoms: Reports chest pain (Briefly, resolved now); Deny diaphoresis, decreased appetite, dyspnea, fevers/chills, headache(s), nausea, palpitations, short of breath, syncope, vomiting or weakness Review of Systems Const: Denies: fever(s), chills or diaphoresis Eyes: Reports: blurry vision (yesterday) Card: Reports: chest pain (Briefly, resolved now); Denies: palpitations or syncope Resp: Denies: dyspnea GI: Denies: nausea or vomiting Neuro: Reports: sensory changes; Denies: headache(s) or weakness in extremities [facility] ED PFSH: Medical History (Updated 07/19/21 @ 04:38 by Jace Isidro DO) Atherosclerotic heart disease of [place] coronary artery without angina pectoris Pt is not interested any follow up stress test Bilateral carotid artery stenosis CAD (coronary artery disease) FHx: total knee replacement Gout, arthritis High risk medication use Hyperlipidemia Hypertension Inflammatory arthritis Leg edema Melanoma Osteoarthritis Osteoarthritis involving multiple joints on both sides of body Osteoarthritis of hands, bilateral Other specified rheumatoid arthritis, multiple sites Postop carotid endarterectomy surveillance, encounter for Seronegative rheumatoid arthritis Surgical History H/O carotid endarterectomy RIGHT SIDE 04/2019 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 Family History Father CAD (coronary artery disease) Stroke Brother CAD (coronary artery disease) Mother Chronic kidney disease (CKD) Other Family history of premature coronary artery disease Hypertension Denies family history of Rheumatoid arthritis Diabetes Lupus Clotting disorder Dementia Suicide Anesthesia complication Bleeding disorder Lung disease Cancer Social History Smoking and tobacco status: former smoker Quit status (tobacco): has quit using tobacco Year quit tobacco: 1979 Alcohol intake: never Marital status: History of recent travel: No (07/04/2019) Physical Exam Const: GENERAL APPEARANCE: cooperative and anxious (Mildly) ORIENTATION/CONSCIOUSNESS: Yes awake, Yes oriented to person, Yes oriented to place and Yes oriented to time HENMT: COMMON NORMALS: normocephalic and atraumatic HEAD & SCALP: normocephalic and atraumatic Chest: COMMONS NORMALS: normal inspection of the chest Resp: COMMON NORMALS: normal respiratory effort, No use of accessory muscles and clear to auscultation bilaterally AUSCULTATION: clear to auscultation bilaterally Cardio: COMMON NORMALS: regular rate and regular rhythm RATE: regular rate RHYTHM: regular rhythm GI: COMMON NORMALS: Normal to inspection, nondistended, normoactive bowel sounds present, Soft to palpation and non-tender PALPATION: Yes Soft to palpation Neuro: DC COMA SCALE: document GCS findings [place] coma scale eye opening: Spontaneous [place] coma scale verbal response: Orientated [place] coma scale motor response: Obey commands [place] coma scale total score: 15 SENSORIUM/ORIENTATION: Yes oriented to person, Yes oriented to place and Yes oriented to time CRANIAL NERVES: Yes CN normal except as noted COORDINATION/BALANCE: [id number] test normal and razq-mi-[id number] test normal SPEECH: speech normal SENSORY EXAM: Yes extremities (Normal) and Trunk sensory exam abnormal (Normal) MOTOR EXAM: Pronator motor function not present COORDINATION: [id number]-iz-[id number] test normal and ijvk-nm-cwtv test normal Course Vital Signs: Vital signs: Vital Signs Temperature 98 F 07/19/21 02:08 Pulse Rate 57 L 07/19/21 04:31 Respiratory Rate 18 07/19/21 04:31 Blood Pressure 167/106 07/19/21 04:31 Pulse Oximetry 98 07/19/21 04:31 MDM - General Adult MDM Narrative: Medical decision making narrative: NIH stroke scale is 0. Blood pressure is significantly high, 259 systolic on presentation in the ER emergency room room. He is given 20 mg of labetalol with improvement to 187 systolic. Patient's blood pressures have been 1 60-1 70 systolic. Again, symptoms are resolved. His troponin is not elevated. CBC is normal. BMP is normal. Given resolution of symptoms with control of blood pressure, he will be allowed home. He will be placed on full dose aspirin given TIA symptoms, and given lisinopril 20 mg. He will check his pressures twice daily, and follow-up with his doctor. Lab Data: Labs: Lab Results 07/19/21 07/19/21 07/19/21 02:18 02:18 02:18 WBC 5.6 10^3/uL 10^3/ uL (4.0-10.0) RBC 4.60 10^6/uL 10^6 /uL (4.1-5.3) Hgb 13.8 g/dL g/dL (11.7-16.6) Hct 41.7 % L % (42.0-52.0) MCV 90.7 fl fl (80-94) MCH 30.0 pg pg (28.0-34.0) MCHC 33.1 g/dL g/dL (30.0-36.0) RDW 14.5 % % (12.1-15.1) Plt Count 118 10^3/cmm L 10 ^3/cmm (130-400) MPV 12.8 fL H fL (7.4-10.4) Neut % (Auto) 49.4 % % Lymph % (Auto) 37.1 % % [place] % (Auto) 10.8 % % Eos % (Auto) 1.8 % % Baso % (Auto) 0.7 % % Neut # (Auto) 2.76 10^3/uL 10^3 /uL (1.8-7.7) Lymph # (Auto) 2.1 10^3/uL 10^3/ uL (0.8-4.8) [place] # (Auto) 0.6 10^3/uL 10^3/ uL (0.2-0.9) Eos # (Auto) 0.1 10^3/uL 10^3/ uL (0.0-0.8) Baso # (Auto) 0.0 10^3/uL 10^3/ uL (0.0-0.1) Nucleated RBC % (a uto) 0 % % Nucleated RBCs # 0.0 /100WBC /100W BC PT 12.10 SECONDS SEC ONDS (12.1-14.9) INR 0.87 (0.8-1.2) APTT 29.3 SECONDS SECO NDS (23.9-36.7) Sodium 138 mmol/L mmol/L (136-145) Potassium 3.9 mmol/L mmol/L (3.5-5.1) Chloride 102 mmol/L mmol/L (98-107) Carbon Dioxide 25 mmol/L mmol/L (22-29) Anion Gap 14.9 (5-19) BUN 10 mg/dL mg/dL (8-23) Creatinine 0.8 mg/dL mg/dL (0.7-1.2) GFR Calculation Not Reportable Glucose 108 mg/dL mg/dL (65-115) POC Glucose Calculated Osmolal ity 286 mOsm/kg mOsm/ kg (285-295) Calcium 8.1 mg/dL L mg/dL (8.5-10.5) Total Bilirubin 0.3 mg/dL mg/dL (0.15-1.2) AST 20 U/L U/L (0-40) ALT 11 U/L U/L (0-41) Alkaline Phosphata se 65 IU/L IU/L (40-130) Troponin T Baselin e Troponin T 120 Min [place] Troponin T Total Protein 6.0 g/dL L g/dL (6.6-8.7) Albumin 4.0 g/dL g/dL (3.5-5.2) Globulin 2.0 g/dL g/dL (1.3-4.6) Urine Color Urine Appearance Urine pH Ur Specific Gravit y Urine Protein Urine Glucose (UA) Urine Ketones Urine Blood Urine Nitrate Urine Bilirubin Urine Urobilinogen Ur Leukocyte Shannon ase 07/19/21 07/19/21 07/19/21 02:18 02:20 03:00 WBC RBC Hgb Hct MCV MCH MCHC RDW Plt Count MPV Neut % (Auto) Lymph % (Auto) [place] % (Auto) Eos % (Auto) Baso % (Auto) Neut # (Auto) Lymph # (Auto) [place] # (Auto) Eos # (Auto) Baso # (Auto) Nucleated RBC % (a uto) Nucleated RBCs # PT INR APTT Sodium Potassium Chloride Carbon Dioxide Anion Gap BUN Creatinine GFR Calculation Glucose POC Glucose 107 mg/dL mg/dL (70-110) Calculated Osmolal ity Calcium Total Bilirubin AST ALT Alkaline Phosphata se Troponin T Baselin e 12 ng/L ng/L (0-15) Troponin T 120 Min [place] Troponin T Total Protein Albumin Globulin Urine Color Yellow (Yellow) Urine Appearance Clear (CLEAR) Urine pH 5 (5-7) Ur Specific Gravit y 1.015 (1.005-1.030) Urine Protein Neg (Negative) Urine Glucose (UA) Norm (Normal) Urine Ketones Negative (Negative) Urine Blood Neg (Negative) Urine Nitrate Negative (Negative) Urine Bilirubin Neg (Negative) Urine Urobilinogen Norm mg/dL mg/dL (Negative) Ur Leukocyte Shannon ase Negative (Negative) 07/19/21 04:13 WBC RBC Hgb Hct MCV MCH MCHC RDW Plt Count MPV Neut % (Auto) Lymph % (Auto) [place] % (Auto) Eos % (Auto) Baso % (Auto) Neut # (Auto) Lymph # (Auto) [place] # (Auto) Eos # (Auto) Baso # (Auto) Nucleated RBC % (a uto) Nucleated RBCs # PT INR APTT Sodium Potassium Chloride Carbon Dioxide Anion Gap BUN Creatinine GFR Calculation Glucose POC Glucose Calculated Osmolal ity Calcium Total Bilirubin AST ALT Alkaline Phosphata se Troponin T Baselin e Troponin T 120 Min [place] 14.30 ng/L ng/L (0-15) Delta Troponin T 2.30 ABS# ABS# (0-10) Total Protein Albumin Globulin Urine Color Urine Appearance Urine pH Ur Specific Gravit y Urine Protein Urine Glucose (UA) Urine Ketones Urine Blood Urine Nitrate Urine Bilirubin Urine Urobilinogen Ur Leukocyte Shannon ase Discharge Plan Discharge Patient Disposition: Home Clinical Impression: Hypertensive urgency Condition: Stable Prescriptions: New lisinopril 20 mg tablet 20 mg PO DAILY Qty: 30 RF: 0 aspirin 325 mg tablet 325 mg PO DAILY Qty: 30 RF: 0 No Action potassium chloride 10 mEq capsule, extended release 10 meq PO DAILY 30 Days Qty: 30 RF: 5 chlorthalidone 25 mg tablet 25 mg PO DAILY PRNRF: 0 esomeprazole magnesium 40 mg capsule,delayed release(DR/EC) 40 mg PO DAILY RF: 0 diclofenac sodium 1 % gel 4 g topical QID Qty: 100 RF: 3 hydroxychloroquine 200 mg tablet 200 mg PO BID Qty: 60 RF: 3 prednisone 10 mg tablet See Rx Instructions PO .COMPLEX PRN (Reason: joint pain) Qty: 30 RF: 1 aspirin [Adult Aspirin Regimen] 81 mg tablet,delayed release (DR/EC) 81 mg PO DAILY RF: 0 carvedilol 25 mg tablet See Rx Instructions .ROUTE .COMPLEX Qty: 180 RF: 3 simvastatin 80 mg tablet See Rx Instructions .ROUTE .COMPLEX Qty: 90 RF: 3 Discharge Orders: Discharge ED (Routine); Ordered 07/19/21 Ordered By: Jace Isidro Referrals: Nicolás Alegre MD [Primary Care Provider] - 1-3 days Patient Instructions: Hypertensive Crisis (ED) Activity Restrictions/Additional Instructions: Check your blood pressure twice daily, if the systolic or top number remains above 150, fill the medication you were prescribed and begin taking it. Return immediately to the emergency room for any problems with speech, vision, dizziness, numbness or tingling or weakness. Return also for significant chest discomfort. See your doctor this coming week. Consider increasing your aspirin dosage to a full dose aspirin until you see your doctor, this is 325 mg. Coding Level of Care Code ED Die Technician for Tracy Fwalysha Exam Detailed
[2021-07-19 02:49] LABS: INR 0.87 (0.8-1.2)
[2021-07-19 02:50] LABS: Partial Thromboplastin Time 29.3 SECONDS (23.9-36.7)
[2021-07-19 02:54] LABS: Troponin(5th) Baseline 12 ng/L (0-15)
[2021-07-19 02:55] LABS: Alanine Aminotransferase 11 U/L (0-41); Alkaline Phosphatase 65 IU/L (40-130); Aspartate Amino Transferase 20 U/L (0-40); Blood Urea Nitrogen 10 mg/dL (8-23); Calcium 8.1 mg/dL (8.5-10.5); Carbon Dioxide 25 mmol/L (22-29); Chloride 102 mmol/L (98-107); Glucose 108 mg/dL (65-115); Osmolality Calculated 286 mOsm/kg (285-295); Sodium 138 mmol/L (136-145); Total Bilirubin 0.3 mg/dL (0.15-1.2)
[2021-07-19 03:05] LABS: Anion Gap 14.9 (5-19); Potassium 3.9 mmol/L (3.5-5.1)
[2021-07-19] MEDS: enalaprilat 1.25 mg/mL Inj IVP ×2 (03:05→05:32)
[2021-07-19] MEDS: amlodipine 10 mg Tablet PO (03:05)
[2021-07-19 03:07] LABS: Add Urine Microscopic? NO; Charge for UA Resulting for Rev
[2021-07-19 03:08] LABS: Bilirubin Urine Neg (Negative); Blood Urine Neg (Negative); Glucose Urine UA Norm (Normal); Ketones Urine Negative (Negative); Leukocyte Esterase Urine Negative (Negative); Nitrate Urine Negative (Negative); Protein Urine Neg (Negative); Specific Gravity, Urine 1.015 (1.005-1.030); Urine Appearance Clear (CLEAR); Urine Color Yellow (Yellow); Urobilinogen Urine Norm (Negative); pH Urine 5 (5-7)
--- NOTE | 2021-07-19 04:28 | ECG_ITS ---
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 Measurements Intervals [place] Rate: 67 P: 41 [place]: 127 QRS: 25 QRSD: 97 T: 54 QT: 431 QTc: 456 Interpretive Statements SINUS RHYTHM Compared to ECG 04/28/2020 05:08:06 Sinus bradycardia no longer present Electronically Signed On 07-19-2021 20:14:00 BLASTING CLAY MINER by Eze Camilo M.D. [id number]
== END 2021-07-19 06:02 | disposition home or self-care (01) ==
PROVIDERS: Emergency Provider Emergency Medicine; PCP Family Medicine
DX: I16.0 Hypertensive urgency (principal); Z79.82 Long term (current) use of aspirin; I25.10 Atherosclerotic heart disease of native coronary artery without angina pectoris; E72.3 Disorders of lysine and hydroxylysine metabolism; I10 Essential (primary) hypertension; Z87.891 Personal history of nicotine dependence
CPT/HCPCS: 36416; 70450; 71045; 80053; 81003; 82962; 84484; 85025; 85610; 85730; 93005; 96374; 96375; 96376; 99284; J3490

== ENCOUNTER → 2021-11-02 09:49 | Outpatient (BNVA) | payer MEDICARE, OTHER, SELFPAY | PROVIDERS: PCP Family Medicine; Visit Provider Internal Medicine Rheumatology | DX: M10.9 Gout, unspecified (principal); M06.00 Rheumatoid arthritis without rheumatoid factor, unspecified site; M15.9 Polyosteoarthritis, unspecified; Z79.899 Other long term (current) drug therapy; Z96.651 Presence of right artificial knee joint; Z87.891 Personal history of nicotine dependence | CPT/HCPCS: 99214 ==

== ENCOUNTER → 2021-11-10 09:47 | Outpatient (BNVA) | payer MEDICARE, OTHER, SELFPAY | PROVIDERS: PCP Family Medicine; Visit Provider Internal Medicine Cardiovascular Disease | DX: I25.10 Atherosclerotic heart disease of native coronary artery without angina pectoris (principal); E78.2 Mixed hyperlipidemia; Z48.812 Encounter for surgical aftercare following surgery on the circulatory system; I11.0 Hypertensive heart disease with heart failure; I50.33 Acute on chronic diastolic (congestive) heart failure; Z87.891 Personal history of nicotine dependence; R06.02 Shortness of breath; Z79.899 Other long term (current) drug therapy; M10.9 Gout, unspecified; M06.00 Rheumatoid arthritis without rheumatoid factor, unspecified site | CPT/HCPCS: 80048; 80076; 83880; 84550; 85025; 85651; 86140; 99214 ==

== ENCOUNTER → 2022-03-08 10:48 | Outpatient (BNVA) | payer MEDICARE, OTHER, SELFPAY | PROVIDERS: PCP Family Medicine; Visit Provider Internal Medicine Rheumatology | DX: M10.9 Gout, unspecified (principal); M06.00 Rheumatoid arthritis without rheumatoid factor, unspecified site; Z79.899 Other long term (current) drug therapy; M19.90 Unspecified osteoarthritis, unspecified site; Z96.651 Presence of right artificial knee joint | CPT/HCPCS: 99214 ==

== ENCOUNTER → 2022-05-19 09:34 | Outpatient (BNVA) | payer MEDICARE, OTHER, SELFPAY | PROVIDERS: PCP Family Medicine; Visit Provider Internal Medicine Cardiovascular Disease | DX: R06.02 Shortness of breath (principal); I35.0 Nonrheumatic aortic (valve) stenosis; Z48.812 Encounter for surgical aftercare following surgery on the circulatory system; I25.10 Atherosclerotic heart disease of native coronary artery without angina pectoris; R07.9 Chest pain, unspecified; R00.0 Tachycardia, unspecified; I10 Essential (primary) hypertension; E78.2 Mixed hyperlipidemia | CPT/HCPCS: 99214 ==

== ENCOUNTER 2022-08-19 12:34 | Outpatient (CLI) | payer MEDICARE, OTHER, SELFPAY | END 2022-08-19 12:35 | disposition home or self-care (01) | PROVIDERS: PCP Family Medicine; Visit Provider Internal Medicine Rheumatology | DX: M19.90 Unspecified osteoarthritis, unspecified site (principal); M10.9 Gout, unspecified; Z79.899 Other long term (current) drug therapy | CPT/HCPCS: 36415; 80076; 82565; 84550; 85025; 85651; 86140; 99214 ==

== ENCOUNTER 2022-08-20 08:52 | Outpatient (CLI) | payer MEDICARE, OTHER, SELFPAY ==
--- NOTE | 2022-08-20 09:02 | XR_ITS ---
WS: [id number] Exam: XR foot RT min 3V* [id number] Date/Time of Exam: 08/20/2022 9:02 AM Reason For Exam: M19.90 - Unspecified osteoarthritis, unspecified site Comparison 11/29/2019. No acute fracture or dislocation. Cortical erosions along the first metatarsal head that could be sec ondary to gout. Degenerative changes in the IP joints and first MP joint. Vascular calcifications abo ut the foot and ankle. Large calcaneal spurs. XR/XR foot RT min 3V* [id number] IMPRESSION: 1. No fracture or dislocation. 2. Degenerative changes. 3. Cortical erosion of the head of the first metatarsal tarsal that might be se en with gouty arthritis.
--- NOTE | 2022-08-20 09:02 | XR_ITS ---
WS: [id number] Exam: XR foot LT min 3V* [id number] Date/Time of Exam: 08/20/2022 9:02 AM Reason For Exam: M19.90 - Unspecified osteoarthritis, unspecified site Comparison 11/29/2019. No acute fracture or dislocation. Degenerative changes of the IP joints and first MP joint. Soft tiss ue calcification seen about the head of the fifth metatarsal. Degenerative changes in the midfoot kelsey nts. Vascular calcifications about the ankle. Calcaneal spurs. Calcification of the plantar aponeuros is. XR/XR foot LT min 3V* [id number] IMPRESSION: 1. No fracture or dislocation. 2. Moderately advanced degenerative changes as detailed above.
== END 2022-08-20 08:53 | disposition home or self-care (01) ==
PROVIDERS: PCP Family Medicine; Visit Provider Internal Medicine Rheumatology
DX: M10.9 Gout, unspecified (principal); Z79.899 Other long term (current) drug therapy; M85.871 Other specified disorders of bone density and structure, right ankle and foot; M77.32 Calcaneal spur, left foot
CPT/HCPCS: 73630

== ENCOUNTER → 2022-10-26 13:01 | Outpatient (BNVA) | payer MEDICARE, OTHER, SELFPAY | PROVIDERS: PCP Family Medicine; Visit Provider Internal Medicine Rheumatology | DX: M19.90 Unspecified osteoarthritis, unspecified site (principal); Z79.899 Other long term (current) drug therapy; M10.9 Gout, unspecified | CPT/HCPCS: 99214 ==

== ENCOUNTER 2023-01-07 01:36 | Emergency (ER) | payer MEDICARE, OTHER, SELFPAY ==
[2023-01-07 01:42] VITALS: BP 132/94; PULSE 118; RESP 24; TEMP 36.1; O2SAT 97; BMI 30.4
--- NOTE | 2023-01-07 01:47 | ECG_ITS ---
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 Measurements Intervals [place] Rate: 106 P: 71 [place]: 174 QRS: 56 QRSD: 91 T: 68 QT: 339 QTc: 451 Interpretive Statements SINUS TACHYCARDIA POSSIBLE LEFT ATRIAL ENLARGEMENT [-0.1mV P-WAVE IN V1/V2] NONSPECIFIC ST & T-WAVE ABNORMALITY ABNORMAL RHYTHM ECG Compared to ECG 07/19/2021 04:11:52 T-wave abnormality now present Sinus rhythm no longer present Electronically Signed On 01-07-2023 8:09:04 CDT by Amy Arrington M.D. [id number]
--- NOTE | 2023-01-07 01:48 | XRR_ITS ---
PROCEDURE INFORMATION: Exam: XR Chest Exam date and time: 01/07/2023 1:57 AM Age: 77 years old Clinical indication: Shortness of breath; Additional info: SOB TECHNIQUE: Imaging protocol: Radiologic exam of the chest. Views: 1 view. COMPARISON: CR XR chest 1V portable [id number] 07/19/2021 2:58 AM FINDINGS: Lungs: Left lower lobe infiltrate/effusion. Pleural spaces: Unremarkable. No pleural effusion. No pneumothorax. Heart/Mediastinum: Cardiomegaly. Bones/joints: Unremarkable. XR/XR chest 1V portable [id number] IMPRESSION: 1. Cardiomegaly. 2. Left lower lobe infiltrate/pleural effusion.
--- NOTE | 2023-01-07 01:54 | W.ED.SOB ---
HPI - SOB/Dyspnea General: Chief Complaint: Shortness of Breath/Dyspnea Stated Complaint: SOB Time Seen by Provider: 01/07/23 01:38 Source: patient Mode of arrival: ambulatory Limitations: no limitations History of Present Illness: HPI Narrative: 77-year-old male states that he woke up this morning having shortness of breath. States he has been having some lower extreme edema is recently started on Lasix by his PCP 2 weeks ago. States he felt like he is having some palpitations as well. He denies any chest pain denies any fever denies any cough his pulse ox here is 97% on room air. Denies any worsening improving factors. Associated symptoms: Reports palpitations; Deny abdominal pain, chest pain, fever(s), nausea or vomiting Review of Systems Const: Denies: fever(s), chills, body aches or change in appetite Eyes: Denies: blurry vision or eye discomfort ENMT: Denies: throat pain or dental pain Card: Reports: palpitations; Denies: chest pain Resp: Reports: dyspnea GI: Denies: abdominal pain, nausea, vomiting or diarrhea Musc: Denies: neck pain or back pain Skin/Breast: Denies: rash Neuro: Denies: headache(s) PFSH ED PFSH: Medical History (Updated 01/07/23 @ 03:27 by Otis Sue MD) Atherosclerotic heart disease of [place] coronary artery without angina pectoris Pt is not interested any follow up stress test Bilateral carotid artery stenosis CAD (coronary artery disease) Chest pain FHx: total knee replacement Gout, arthritis High risk medication use Hyperlipidemia Hypertension Inflammatory arthritis Leg edema Melanoma Osteoarthritis Osteoarthritis involving multiple joints on both sides of body Osteoarthritis of hands, bilateral Other specified rheumatoid arthritis, multiple sites Postop carotid endarterectomy surveillance, encounter for Seronegative rheumatoid arthritis Surgical History (Updated 10/26/22 @ 14:06 by Lester Pool MD) H/O carotid endarterectomy RIGHT SIDE 04/2019 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 Hx of cataract extraction Family History Father CAD (coronary artery disease) PR, unknown age of onset Stroke Brother CAD (coronary artery disease) unknown age of onset Mother Chronic kidney disease (CKD) Other Family history of premature coronary artery disease Hypertension Denies family history of Rheumatoid arthritis Diabetes Lupus Clotting disorder Dementia Suicide Anesthesia complication Bleeding disorder Lung disease Cancer Social History Smoking and tobacco status: never smoked Quit status (tobacco): has quit using tobacco Year quit tobacco: 1979 Alcohol intake: never Substance/Drug Use: never Marital status: Physical Exam Const: COMMON NORMALS: no acute distress and patient oriented x3 HENMT: COMMON NORMALS: normocephalic and atraumatic HEAD & SCALP: normocephalic and atraumatic Eye: COMMON NORMALS: conjunctivae normal CONJUNCTIVA: Yes conjunctivae normal Neck/C-Spine: COMMON NORMALS: full ROM and supple Chest: COMMONS NORMALS: normal inspection of the chest Resp: COMMON NORMALS: normal respiratory effort, No retractions, No use of accessory muscles and clear to auscultation bilaterally AUSCULTATION: clear to auscultation bilaterally Cardio: COMMON NORMALS: regular rate, regular rhythm and No murmurs present (Cardio) RATE: regular rate RHYTHM: regular rhythm GI: INSPECTION: Yes normal to inspection Extremity: NARRATIVE EXTREMITY EXAM: 2+ lower ext edema Neuro: COMMON NORMALS: patient oriented x3, moves all extremities and no focal motor deficits Psych: COMMON NORMALS: mental status grossly normal, Normal thought process present and cooperative THOUGHT PROCESS: Normal thought process present Skin: COMMON NORMALS: no rashes or lesions noted and no wounds GENERAL SKIN EXAM: no rashes or lesions noted Course Vital Signs: Vital signs: Vital Signs Temperature 97.0 F L 01/07/23 01:42 Pulse Rate 120 H 01/07/23 03:09 Respiratory Rate 16 01/07/23 03:09 Blood Pressure 117/88 01/07/23 03:09 Pulse Oximetry 98 01/07/23 03:09 Oxygen Delivery Me thod Room Air 01/07/23 01:42 MDM - SOB/Dyspnea Medical Decision Making Patient presents with dyspnea he does have a small pleural effusion also leg edema likely congestive heart failure he has diuresed here after Lasix. I did recommend admission he did have elevated BNP and the effusion he has not been hypoxic he states he does not want to stay in the hospital will discharge him at this time. 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 Lab Data 01/07/23 01:49 01/07/23 01:49 Labs/Radiology: Radiology Impressions Chest X-Ray 01/07/23 01:48 IMPRESSION: 1. Cardiomegaly. 2. Left lower lobe infiltrate/pleural effusion. Laboratory Results WBC 6.6 10^3/uL (4.0-10.0) 01/07/23 01:49 RBC 4.97 10^6/uL (4.1-5.3) 01/07/23 01:49 Hgb 13.6 g/dL (11.7-16.6) 01/07/23 01:49 Hct 45.1 % (42.0-52.0) 01/07/23 01:49 MCV 90.7 fl (80-94) 01/07/23 01:49 MCH 27.4 pg (28.0-34.0) L 01/07/23 01:49 MCHC 30.2 g/dL (30.0-36.0) 01/07/23 01:49 RDW 15.9 % (12.1-15.1) H 01/07/23 01:49 Plt Count 141 10^3/cmm (130-400) 01/07/23 01:49 MPV 13.9 fL (7.4-10.4) H 01/07/23 01:49 Neut % (Auto) 59.8 % 01/07/23 01:49 Lymph % (Auto) 30.1 % 01/07/23 01:49 [place] % (Auto) 8.3 % 01/07/23 01:49 Eos % (Auto) 1.1 % 01/07/23 01:49 Baso % (Auto) 0.5 % 01/07/23 01:49 Neut # (Auto) 3.98 10^3/uL (1.8-7.7) 01/07/23 01:49 Lymph # (Auto) 2.0 10^3/uL (0.8-4.8) 01/07/23 01:49 [place] # (Auto) 0.6 10^3/uL (0.2-0.9) 01/07/23 01:49 Eos # (Auto) 0.1 10^3/uL (0.0-0.8) 01/07/23 01:49 Baso # (Auto) 0.0 10^3/uL (0.0-0.1) 01/07/23 01:49 Nucleated RBC % (auto) 0 % 01/07/23 01:49 Nucleated RBCs # 0.0 /100WBC 01/07/23 01:49 Sodium 140 mmol/L (136-145) 01/07/23 01:49 Potassium 4.4 mmol/L (3.5-5.1) 01/07/23 01:49 Chloride 101 mmol/L (98-107) 01/07/23 01:49 Carbon Dioxide 26 mmol/L (22-29) 01/07/23 01:49 Anion Gap 17.4 (5-19) 01/07/23 01:49 BUN 14 mg/dL (8-23) 01/07/23 01:49 Creatinine 1.1 mg/dL (0.7-1.2) 01/07/23 01:49 GFR Calculation Not Reportable 01/07/23 01:49 Glucose 118 mg/dL (65-115) H 01/07/23 01:49 Calculated Osmolality 292 mOsm/kg (285-295) 01/07/23 01:49 Calcium 9.1 mg/dL (8.5-10.5) 01/07/23 01:49 Total Bilirubin 0.4 mg/dL (0.15-1.2) 01/07/23 01:49 AST 21 U/L (0-40) 01/07/23 01:49 ALT 13 U/L (0-41) 01/07/23 01:49 Alkaline Phosphatase 73 U/L (40-130) 01/07/23 01:49 NT-Pro-B Natriuret Pep 3661 pg/mL (0-450) H 01/07/23 01:49 Total Protein 6.5 g/dL (6.6-8.7) L 01/07/23 01:49 Albumin 4.0 g/dL (3.5-5.2) 01/07/23 01:49 Globulin 2.5 g/dL (1.3-4.6) 01/07/23 01:49 EKG Data EKG 1: I personally reviewed and interpreted this EKG as follows: EKG Interpretation Date: 01/07/23 EKG interpretation time: 01:48 Interpretation: sinus tach hr [address] or t wave abnormalities qrs 91 qtc 401 Discharge Plan Discharge Patient Disposition: Home Clinical Impression: Congestive heart failure, Dyspnea Condition: Stable Prescriptions: No Action esomeprazole magnesium 40 mg capsule,delayed release(DR/EC) 40 mg PO DAILY diclofenac sodium 1 % gel 4 g topical QID Qty: 100 3RF Rx Instructions: apply to affected area as needed aspirin [Adult Aspirin Regimen] 81 mg tablet,delayed release (DR/EC) 81 mg PO DAILY hydroxychloroquine 200 mg tablet 200 mg PO BID Qty: 180 1RF simvastatin 80 mg tablet See Rx Instructions .ROUTE .COMPLEX Qty: 90 3RF Dose Instruction: Take 1 tablet by mouth once daily Rx Instructions: Take 1 tablet by mouth once daily prednisone 20 mg tablet See Rx Instructions PO .COMPLEX PRN (Reason: joint pain flare) Qty: 30 1RF Rx Instructions: take 1 or 2 tab daily for 7 days then call with update... Discharge Orders: Discharge ED (Routine); Ordered 01/07/23 Ordered By: Otis Sue Referrals: Nicolás Alegre MD [Primary Care Provider] - Discharge Diet: Advance as tolerated Discharge Activity: Resume usual activity Patient Instructions: Heart Failure (ED) Activity Restrictions/Additional Instructions: double your lasix dose the next 5 days to 80mg daily then go back to 40mg Coding Level of Care Code ED Photo Studio Assistant for Tracy Mackay
[2023-01-07 01:57] LABS: Basophils % 0.5 %; Eosinophils # 0.1 10^3/uL (0.0-0.8); Eosinophils % 1.1 %; Hematocrit 45.1 % (42.0-52.0); Hemoglobin 13.6 g/dL (11.7-16.6); Lymphocytes % 30.1 %; Mean Corpuscular HGB Conc 30.2 g/dL (30.0-36.0); Mean Corpuscular Hemoglobin 27.4 pg (28.0-34.0); Mean Corpuscular Volume 90.7 fl (80-94); Mean Platelet Volume 13.9 fL (7.4-10.4); Monocytes # 0.6 10^3/uL (0.2-0.9); Monocytes % 8.3 %; Neutrophils # 3.98 10^3/uL (1.8-7.7); Neutrophils % 59.8 %; Nucleated Red Blood Cells % 0 %; Platelet Count 141 10^3/cmm (130-400); Red Blood Count 4.97 10^6/uL (4.1-5.3); Red Cell Distribution Width 15.9 % (12.1-15.1); White Blood Count 6.6 10^3/uL (4.0-10.0)
[2023-01-07] MEDS: FUROsemide 10 mg/mL SDV 10mL 60 MG IVP (02:01)
[2023-01-07 02:20] LABS: Alanine Aminotransferase 13 U/L (0-41); Alkaline Phosphatase 73 U/L (40-130); Anion Gap 17.4 (5-19); Aspartate Amino Transferase 21 U/L (0-40); Blood Urea Nitrogen 14 mg/dL (8-23); Calcium 9.1 mg/dL (8.5-10.5); Carbon Dioxide 26 mmol/L (22-29); Chloride 101 mmol/L (98-107); Globulin 2.5 g/dL (1.3-4.6); Glucose 118 mg/dL (65-115); NT Pro B Type Natriuretic Pept 3661 pg/mL (0-450); Osmolality Calculated 292 mOsm/kg (285-295); Potassium 4.4 mmol/L (3.5-5.1); Sodium 140 mmol/L (136-145); Total Bilirubin 0.4 mg/dL (0.15-1.2); Total Protein 6.5 g/dL (6.6-8.7)
[2023-01-07 02:33] VITALS: BP 126/92; PULSE 107; RESP 16; O2SAT 97
[2023-01-07 02:42] LABS: Slide Review Slide Review Perform
[2023-01-07 03:09] VITALS: BP 117/88; PULSE 120; RESP 16; O2SAT 98
[2023-01-07 03:36] VITALS: BP 117/88; PULSE 120; RESP 16; TEMP 36.1; O2SAT 98
--- NOTE | 2023-01-07 07:44 | DCPLANNER ---
Addendum entered by Sneha Johnson 01/20/23 06:35: Patient had a follow up appointment scheduled with heart care - patient did attend appointment. Addendum entered by Sneha Johnson 01/07/23 12:26: Patient has a follow up appointment scheduled for Tuesday, January 10, 2023 at 12:[address] Kelsey at [facility]. Original Note: sales analytics manager had message to schedule a follow up appointment for patient with cardiology. sales analytics manager sent patients information to the front office staff at [facility]. Patients information will be printed and reviewed. Clinic will call patient with appointment information.
== END 2023-01-07 03:37 | disposition home or self-care (01) ==
PROVIDERS: Emergency Provider Emergency Medicine; PCP Family Medicine
DX: I50.9 Heart failure, unspecified (principal); R06.00 Dyspnea, unspecified
CPT/HCPCS: 71045; 80053; 83880; 85025; 93005; 96374; 99285; J1940

== ENCOUNTER → 2023-01-10 12:03 | Outpatient (BNVA) | payer MEDICARE, OTHER, SELFPAY | PROVIDERS: PCP Family Medicine; Visit Provider Internal Medicine Cardiovascular Disease | DX: I11.0 Hypertensive heart disease with heart failure (principal); I50.9 Heart failure, unspecified; R06.00 Dyspnea, unspecified; I35.0 Nonrheumatic aortic (valve) stenosis; I25.10 Atherosclerotic heart disease of native coronary artery without angina pectoris; E78.2 Mixed hyperlipidemia | CPT/HCPCS: 99214 ==

== ENCOUNTER → 2023-01-20 11:57 | Outpatient (BNVA) | payer MEDICARE, OTHER, SELFPAY | PROVIDERS: PCP Family Medicine; Visit Provider Internal Medicine Cardiovascular Disease | DX: R06.02 Shortness of breath (principal); R07.9 Chest pain, unspecified; I50.9 Heart failure, unspecified; R00.0 Tachycardia, unspecified; I25.10 Atherosclerotic heart disease of native coronary artery without angina pectoris; I10 Essential (primary) hypertension; E78.2 Mixed hyperlipidemia; Z48.812 Encounter for surgical aftercare following surgery on the circulatory system | CPT/HCPCS: 36415; 80048; 83880; 93005; 99215 ==

== ENCOUNTER 2023-02-01 09:48 | Outpatient (CLI) | payer MEDICARE, OTHER, SELFPAY ==
--- NOTE | 2023-02-01 10:15 | USCV_ITS ---
Nicolás Lazo Age: 77 Gender: M : 1945 Exam Date: 02/01/2023 09:59 Ordering Phys: Eze Camilo MD ([email or web address]) Technologist: Freda Young Exam Location: [facility] [place] Indication: CHF BP: 120 / 74 HR: 106 Rhythm: Sinus Technical Quality: Adequate MEASUREMENTS (Male / Female) Normal Values 2D ECHO LV Diastolic Diameter PLAX 6.5 cm 4.2 - 5.9 / 3.9 - 5.3 cm LV Systolic Diameter PLAX 5.5 cm LV Chamber Size 5.5 cm IVS Diastolic Thickness 0.8 cm 0.6 - 1.0 / 0.6 - 0.9 cm IVS Systolic Thickness 1.1 cm LVPW Diastolic Thickness 1.0 cm 0.6 - 1.0 / 0.6 - 0.9 cm LVPW Systolic Thickness 1.3 cm RV Chamber Size 3.3 cm LVOT Diameter 2.0 cm LV Ejection Fraction 2D Teich 33.3 % LV Ejection Fraction MOD 2C 27.8 % LV Ejection Fraction 2C AL 29.3 % LA Diameter 4.8 cm LA Width 4.4 cm LA Height 5.5 cm RA Width 4.9 cm RA Height 4.5 cm Aorta at Sinotubular Diameter 2.8 cm IVC Diameter 2.1 cm M-MODE Aortic Annulus Diameter 3.2 cm LA Ao Ratio MM 1.9 MV E Point Septal Separation 1.8 cm DOPPLER AV Peak Velocity 189.5 cm/s LVOT Peak Velocity 56.0 cm/s AV Area Cont Eq vti 0.9 cm squared AV Area Cont Eq pk 0.9 cm squared MV Area PHT 5.0 cm squared Mitral E to A Ratio 2.0 MV E' Velocity 45.5 cm/s Mitral E to MV E' Ratio 15.1 Mitral E to LV E' Lateral Ratio 18.0 Mitral E to LV E' Septal Ratio 13.1 TR Peak Velocity 211.8 cm/s TR Peak Gradient 17.9 mmHg TR Mean Velocity 161.1 cm/s TR Mean Gradient 12.0 mmHg TR Velocity Time Integral 64.1 cm TV Peak E Velocity 59.0 cm/s Right Atrial Pressure 3.0 mmHg Pulmonary Artery Systolic Pressu 20.9 mmHg RV Acceleration Time 0.1 s RV Ejection Time 0.2 s RV AcT/ET 0.3 FINDINGS Left Ventricle Moderately dilated left-ventricular. Severe diffuse hypokinesia of the left ventricular ejection fraction of 28%. Right Ventricle Normal RV size and ejection fraction Right Atrium The right atrium is normal in size. Left Atrium Mildly increased left atrial size. Mitral Valve Thickened mitral valve. Moderate mitral valve regurgitation. Aortic Valve Moderate aortic valve calcification. 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 Peak velocity of 1.89 m/s. Peak gradient of 15 with a mean gradient of 7 mmHg Tricuspid Valve [id number]-[id number] tricuspid valve regurgitation. Pulmonic Valve Structurally normal pulmonic valve without significant stenosis. There is no pulmonic regurgitation. Pericardium Normal pericardium without effusion. Aorta Normal aortic annulus size. IVC Normal inferior vena cava. CONCLUSIONS Moderately dilated left-ventricule. Severe diffuse hypokinesia of the left ventricular ejection fraction of 28%. Tevere low gradient low flow aortic valve stenosis with a valve area of 0.9 cm squared. Peak velocity of 1.89 m/s. Peak gradient of 15 with a mean gradient of 7 mmHg. Moderate aortic valve calcification [id number]-rx-krixymix tricuspid valve regurgitation. Estimated pulmonary artery peak systolic pressure 21 mmHg There is no pericardial effusion. Compared to the study from 07/07/2021, there is significant drop in the LV ejection fraction and worsening of the aortic valve stenosis Dr Eze Camilo MD FAC (Electronically Signed) Final Date: 01 February 2023 18:24 S
== END 2023-02-01 09:49 | disposition home or self-care (01) ==
PROVIDERS: PCP Family Medicine; Visit Provider Internal Medicine Cardiovascular Disease
DX: I08.2 Rheumatic disorders of both aortic and tricuspid valves (principal); R06.09 Other forms of dyspnea
CPT/HCPCS: 93306

== ENCOUNTER 2023-02-14 06:25 | Outpatient (CLI) | payer MEDICARE, OTHER, SELFPAY ==
--- NOTE | 2023-02-14 | ECG_ITS ---
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 Interpretive Statements NAME OF STUDY: LEXISCAN SESTAMIBI STRESS TEST INDICATION: Congestive Heart Failure RESULTS TO NICOLÁS DUPONT MD PROCEDURE: At the baseline, the EKG revealed sinus tachycardia with a rate of 101 bpm. Nons[address]CD. Nonspecific [address]-T changes. The baseline heart was 101 bpm with a blood pressue of 118/85 mm of Hg Lexiscan was infused over a period of 20 seconds. A total of 0.4 milligrams of Lexiscan was infused. The stress phase was continued for a total of 5 minutes. Heart rate at the end of the stress phase was 92 bpm with a blood pressure 95/67 mm of Hg. The EKG at the peak infusion revealed no significant changes. Sestamibi was injected 20 seconds after the Lexiscan infusion. Heart rate at the end of the recovery phase was 89 bpm with a blood pressure of 96/65 mm of Hg. CONCLUSION: 1. No significant EKG changes with the LexiScan infusion 2. No LexiScan induced chest pain or cardiac arrhythmia 3. Normal blood pressure and heart rate response 4. Sestamibi/sestamibi perfusion scan pending; see separate report. Electronically Signed On 02-21-2023 11:17:53 CDT by Eze Camilo M.D. [id number]
[2023-02-14 06:35] VITALS: BMI 30.9
--- NOTE | 2023-02-14 06:51 | NMCV_ITS ---
NM trev perf SPECT r/s* [id number] Nicolás Lazo Age: 77 Gender: M : 1945 Exam Date: 02/14/2023 08:08 Ordering Phys: Eze Camilo MD ([email or web address]) Technologist: ISABEL Tatum Exam Location: [facility] Indications: CORONARY ANGIOPLASTY STATUS STRESS TEST Please see separate stress test report in [facility] for full findings IMAGE PROTOCOL Rest/Stress 1 Lexiscan Day Radiopharmaceutical Dose (mCi) Administration Site Administered by Rest: Tc-99m 10.8 IV ISABEL Morris Sestamibi Stress:Tc-99m 32.7 IV ISABEL Morris Sestamibi Rest: 14-Feb-2023 60 Discovery 630 Stress: 14-Feb-2023 30 Discovery 630 0.4mg Lexiscan. Images obtained in supine and prone position. SPECT RESULTS Technical Quality: Excellent Raw Data Analysis: Normal Image Corrections: No attenuation or motion correction applied Summed Stress Score: 3 Summed Rest Score: 10 Summed Difference Score: 0 PERFUSION FINDINGS Areas of moderately decreased tracer uptake in the anterior, anterolateral, inferior , inferoseptal and apical regions. Increased tracer uptake also was noted in the free wall of the right ventricle. No significant reversibility was noted in these regions. There was thinning of the LV peterson with a dilated cavity . FUNCTIONAL RESULTS (calculated via Gated SPECT) Stress Image LV EF (%): 11 Stress EDV (mL):354 TID: 1.07 Stress ESV (mL):316 FUNCTIONAL FINDINGS: Segmental wall motion analysis revealed severe diffuse hypokinesia of the left ventricle. IMPRESSIONS 1. Myocardial perfusion imaging revealing patchy areas of persistent decreased tracer uptake in the anterior, anterolateral, inferior and inferoseptal regions, suggesting myocardial scarring versus attenuation artifact. 2. Markedly diminished LV ejection fraction of 11%. 3. Severe diffuse hypokinesia of the left ventricle. 4. Markedly dilated LV cavity 5. 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 No similar previous studies are available for comparison Dr Eze Camilo MD [facility] (Electronically Signed) Final Date: 15 February 2023 08:08 S
[2023-02-14] MEDS: regadenoson 0.4 Mg/5 ml Syringe IVP (08:40)
[2023-02-14 09:04] VITALS: BP 92/65; PULSE 68
== END 2023-02-14 06:26 | disposition home or self-care (01) ==
PROVIDERS: PCP Family Medicine; Visit Provider Internal Medicine Cardiovascular Disease
DX: Z98.61 Coronary angioplasty status (principal)
CPT/HCPCS: 36415; 78452; 93017; 96374; A9500; J2785

== ENCOUNTER → 2023-02-23 09:44 | Outpatient (BNVA) | payer MEDICARE, OTHER, SELFPAY | PROVIDERS: PCP Family Medicine; Visit Provider Nurse Practitioner Family | DX: I11.0 Hypertensive heart disease with heart failure (principal); I50.9 Heart failure, unspecified; I35.0 Nonrheumatic aortic (valve) stenosis; Z79.82 Long term (current) use of aspirin | CPT/HCPCS: 99214 ==

== ENCOUNTER → 2023-04-25 10:42 | Outpatient (BNVA) | payer MEDICARE, OTHER, SELFPAY | PROVIDERS: PCP Family Medicine; Visit Provider Nurse Practitioner Family | DX: I11.0 Hypertensive heart disease with heart failure (principal); I50.22 Chronic systolic (congestive) heart failure | CPT/HCPCS: 99213 ==

== ENCOUNTER 2023-05-04 14:17 | Outpatient (CLI) | payer MEDICARE, OTHER, SELFPAY ==
--- NOTE | 2023-05-04 14:45 | USCV_ITS ---
Nicolás Lazo Age: 78 Gender: M : 1945 Exam Date: 05/04/2023 14:40 Ordering Phys: Minal Friedman Technologist: [place] [facility] [place]ication: icd BP: / HR: 100 Rhythm: Sinus Technical Quality: Adequate MEASUREMENTS (Male / Female) Normal Values 2D ECHO LV Diastolic Diameter PLAX 6.7 cm 4.2 - 5.9 / 3.9 - 5.3 cm LV Systolic Diameter PLAX 5.7 cm IVS Diastolic Thickness 1.1 cm 0.6 - 1.0 / 0.6 - 0.9 cm IVS Systolic Thickness 1.4 cm LVPW Diastolic Thickness 1.2 cm 0.6 - 1.0 / 0.6 - 0.9 cm LVPW Systolic Thickness 1.3 cm LVOT Diameter 2.0 cm LV Ejection Fraction 2D Teich 32.1 % LA Diameter 3.4 cm IVC Diameter 1.0 cm M-MODE Aortic Annulus Diameter 3.6 cm LA Ao Ratio MM 0.9 MV E Point Septal Separation 3.8 cm FINDINGS Left Ventricle Right Ventricle Right Atrium Left Atrium Mitral Valve Aortic Valve Tricuspid Valve Pulmonic Valve Pericardium Aorta IVC CONCLUSIONS This is a limited echocardiogram performed to assess LV systolic function. LV systolic function is severely reduced with EF of 25 to 30%. Severe global hypokinesis. Compared to prior echocardiogram from 02/01/2023, no significant changes are seen Gino Krishnamurthy MD (Electronically Signed) Final Date: 05 May 2023 10:36 S
== END 2023-05-04 14:18 | disposition home or self-care (01) ==
LOC: RAD 14:17
PROVIDERS: PCP Family Medicine; Visit Provider Nurse Practitioner Family
DX: I50.9 Heart failure, unspecified (principal)
CPT/HCPCS: 93308

== ENCOUNTER → 2023-05-11 10:38 | Outpatient (BNVA) | payer MEDICARE, OTHER, SELFPAY | PROVIDERS: PCP Family Medicine; Visit Provider Internal Medicine Rheumatology | DX: Z79.899 Other long term (current) drug therapy (principal); M10.9 Gout, unspecified; M19.90 Unspecified osteoarthritis, unspecified site | CPT/HCPCS: 99214 ==

== ENCOUNTER → 2023-05-25 15:07 | Outpatient (BNVA) | payer MEDICARE, OTHER, SELFPAY | PROVIDERS: PCP Family Medicine; Visit Provider Internal Medicine Cardiovascular Disease | DX: I11.0 Hypertensive heart disease with heart failure (principal); I50.22 Chronic systolic (congestive) heart failure; I35.0 Nonrheumatic aortic (valve) stenosis; I25.10 Atherosclerotic heart disease of native coronary artery without angina pectoris; I65.23 Occlusion and stenosis of bilateral carotid arteries; E78.2 Mixed hyperlipidemia; R00.0 Tachycardia, unspecified | CPT/HCPCS: 99214 ==

== ENCOUNTER 2023-06-03 08:24 | Observation (INO) | payer MEDICARE, OTHER, SELFPAY ==
[2023-06-03] VITALS (7 sets, daily range): BP systolic 97–139; BP diastolic 68–93; PULSE 69–101; RESP 14–15; TEMP 36.6–36.9; O2SAT 96; BMI 30.4
--- NOTE | 2023-06-03 06:00 | XACV_ITS ---
Exam Room: 2 Ht: 173 cm Wt: 91 kg BSA: 2.11 m2 Gender: Male : 1945 Any Known Allergies: Other Exam Priority: Routine Procedure(s): Procedure Description: Diagnostic procedure Procedure Description: Left Heart Catheterization Procedure Description: Coronary Angiography Ton [place]; Diagnostic Cath Status: Elective Diagnostic Findings * The left main is a medium caliber vessel with minimal intimal irregularities. No significant stenotic lesions. * The left anterior descending artery was found to be totally occluded proximally. The artery was found to have severe diffuse disease prior to his total occlusion. * The left circumflex artery is a medium to large caliber dominant vessel. Found to have mild intimal irregularities proximally. The artery appears to give off a large obtuse marginal branch. Mild diffuse disease was noted at the proximal segment of this artery. Then this obtuse marginal artery appears to be flush occluded at the mid segment after giving of a sidebranch. The circumflex proper continues to run in the AV groove and gives off a PDA and PLV branch. Mild diffuse intimal irregularities were noted in these vessels with no significant stenotic lesions. * The right coronary artery is relatively small caliber nondominant vessel which was found to have moderate to severe diffuse disease in the midsegment. Conclusions 1. 78-year-old white male presenting with some shortness of breath. Echocardiogram revealed severe LV systolic dysfunction with ejection fraction of around 25-30%. He also was found to have a low gradient, low flow aortic valve stenosis with a valve area of 0.9 cm2. The peak gradient across the valve is 15 mmHg with a mean gradient of 7 mmHg. In view of the severe LV systolic dysfunction and the aortic valve stenosis, in order to further evaluate his coronary status as well as the valve stenosis, echo left heart catheterization with coronary angiogram was recommended. Patient underwent these procedures today. The findings are as follows. 2. 1. Left main with no significant lesions. 2. Total occlusion of the left anterior descending artery proximally with high-grade lesions, prior to the occlusion. 2. A medium to large caliber dominant circumflex artery with a total occlusion of the first obtuse marginal branch at the mid segment. Mild disease in the PDA and the PLV branches coming off the circumflex. 3. Nondominant right coronary artery with a moderate to severe diffuse disease in the midsegment. LVEDP of 35 mmHg. The mean gradient across the aortic valve was 12 mmHg. Diagnostic RX Recommendation: medical therapy and/or counseling LV EDP: 35 mmHg Left Ventriculography Findings: * The LV gram was not performed. LVEDP was 35 mmHg. Pressures Phase:Rest AO : 77 / 63 ( 70 ) @ 7:55:00 AM 106 / 68 ( 85 ) @ 8:02:00 AM 97 / 81 ( 89 ) @ 8:11:00 AM 107 / 64 ( 84 ) @ 8:13:00 AM 111 / 63 ( 85 ) @ 8:13:00 AM LV : 122 / 6 / 35 @ 8:13:00 AM 121 / 6 / 32 @ 8:13:00 AM Valves Phase:DefaultPhase AV : 15.0 @ 8:26:11 AM 15.0 @ 8:26:11 AM AV Mean Gradient: 12.0 @ 8:26:11 AM 12.0 @ 8:26:11 AM Clinical Evaluation EBL: 5mL-10mL Procedural Details Pre-Procedure Time Out. Identified patient by full name and date of as verbalized by the patient/guarantor. Does the consent match the physician's order: Yes. Accurate & Complete Informed Consent: Yes. Inpatient/Outpatient History & Physical on Chart: Yes. If H&P is completed, is and addenduem needed: No; If yes, is the addendum complete: N/A. Visualize and Verify Site with Patient/Guarantor: N/A. Relevant Radiology Images available: Yes. Pre-op teaching completed and patient verbalized understanding. The risks, benefits, and alternatives of sedation and/or procedure were discussed by physician. The patient agrees to continue. Procedure started. [facility] Clinical Fraility Score: 3: Managing Well. [employer] Indications: Other. Chest Pain Symptom Assessment: Atypical Angina. Correct patient, site and procedure confirmed by cath team. Current diagnosis: Chest Pain. PERRLA. Strong, equal hand ultrasound tech bilaterally. Lungs clear x 5 lobes. IV Site on Arrival: 20 gauge in the right anticubital. IV Fluids: 0.9% NaCl at KVO. 0 mL infused prior to cathode washer. Pre Procedural Pulses: bilateral dorsalis pedis was 2+. Pre Procedural Pulses: bilateral posterior tibial was 2+. Pre Procedural Pulses: bilateral radial was 3+. Oxygen started at 2liters/min via nasal canula. right groin was prepped with chloroprep then draped in the usual sterile fashion. right radial was prepped with chloroprep then draped in the usual sterile fashion. Baseline sample Acquired. HR: 96 BPM. Physician arrived. Current Diagnosis : Chest Pain. Physician scrubbed in. Immediate Pre-Procedure Time Out. Correct Patient: Yes; Correct Procedure: Yes; Correct Site: Yes; Correct Patient Position: Yes; Correct Supplies: Yes; Dried Flammable Prep: Yes; Blood Products Available: N/A;. Lidocaine 1% infiltrated to the right radial. Arterial access obtained. A 5 guinean Von catheter in over wire. Multiple views taken of left coronary artery. Catheter removed over the exchange wire. A 5 guinean JR4 catheter in over wire. Catheter removed over the exchange wire. A 5 guinean AR MOD1 catheter in over wire. Multiple views taken of right coronary artery. EDP Sample taken: LV 122/6,35; HR: 83 BPM; SpO2: 100%. Pullback taken: LV 121/6,32; AO 107/64(84); Mean: 12mmHg, Peak to Peak: 15mmHg, SEP: 22sec/min; HR: 83 BPM; SpO2: 100%. Catheter removed over the exchange wire. Physician review of cine films. Physician scrubbed out. A TR Band was successful obtaining hemostatsis at the Right Radial artery insertion site. Post Procedure: Pulses reassessed and unchanged. PERRLA. Strong, equal hand ultrasound tech bilaterally. No VTE prophylaxis required. Medication's Wasted: Other = Fentanyl 50mcg Versed 1 mg. Medication's Wasted: Heparin = 1000 units. Medication's Wasted: Nitro = 49.8 mcg. Total IV fluids: 50 mL. Complications: None. Estimated blood loss: 5mL-10mL. Responsiveness - Normal response to verbal stimuli; alert and oriented, PERRLA. Airway - Unaffected, no intervention required; spontaneous ventilation. Circulation: W/N/L, pulses unchanged. Nausea/Vomiting: No. Procedure completed. Vital chart was stopped. Patient transferred by wheelchair to 1st floor. Access Site Site: Right Radial artery Sheath Size: 6 Fr Hemostasis Method: TR Band Hemostasis Success: Successful Procedure Medications Start: 7:41 AM Stop: 7:41 AM Medication: Fentanyl Amount: 50 mcg Route: I.V. Start: 7:46 AM Stop: 7:46 AM Medication: Versed Amount: 1 mg Route: I.V. Start: 7:50 AM Stop: 7:50 AM Medication: Verapamil Amount: 5 mg Route: I.A. Start: 7:50 AM Stop: 7:50 AM Medication: Nitrogylcerin Amount: 200 mcg Route: I.A. Start: 7:53 AM Stop: 7:53 AM Medication: Heparin Amount: 5000 units Route: I.V. I, the attending physician, have reviewed and verified all procedure medications. Yes, all medications given per verbal order History/Risk Factors Hypertension: Yes Dyslipidemia: No Peripheral Arterial Disease (PAD): No Myocardial Infarction (LA): No Obesity: No Renal Disease: No Tobacco Use: Never Prior Interventions PCI: No CABG: No Valve Surgery: No Report Signatures Finalized by Dr Eze Camilo MD [facility] on 06/03/2023 10:20 AM
[2023-06-03 06:31] LABS: Hematocrit 43.1 % (37-53); Mean Corpuscular Hemoglobin 29.6 pg (27-33); Mean Corpuscular Volume 92.3 fl (82-101); Mean Platelet Volume 13.9 fL (7.4-10.4); Platelet Count 128 10^3/cmm (157-399); Red Blood Count 4.67 10^6/uL (3.85-5.65); Red Cell Distribution Width 15.1 % (12.1-15.1); White Blood Count 5.93 10^3/uL (3.29-11.43)
[2023-06-03] MEDS: aspirin 325 mg Tablet PO (06:35)
[2023-06-03] MEDS: diphenhydrAMINE 50 mg Capsule PO (06:35)
[2023-06-03 06:44] LABS: Anion Gap 14.2 (5-19); Blood Urea Nitrogen 14 mg/dL (8-23); Calcium 9.4 mg/dL (8.5-10.5); Carbon Dioxide 29 mmol/L (22-29); Chloride 102 mmol/L (98-107); Glucose 104 mg/dL (65-115); Osmolality Calculated 293 mOsm/kg (285-295); Potassium 4.2 mmol/L (3.5-5.1); Sodium 141 mmol/L (136-145)
[2023-06-03 07:29] LABS: Slide Review Slide Review Perform
[2023-06-03 07:31] LABS: Absolute Eosinophils 0.1 10^3/cmm (0.0-0.7); Absolute Segmented Neutrophil 3.6 10/cmm (1.6-7.1); Eosinophils 1 %; Lymphocytes 27 %; Lymphocytes Absolute 1.9 10^3/cmm (1.2-3.4); Monocytes Absolute 0.4 10^3/cmm (0.1-0.6); Segmented Neutrophils 61 %; Total Cells Counted 100 (0-100)
[2023-06-03 07:32] LABS: Absolute Neutrophil 3.6 10^3/cmm (1.4-6.5); Platelet Estimate Decreased (Normal)
--- NOTE | 2023-06-03 07:37 | P.HPUD_ITS ---
Surgery/Procedure H&P Update DATE OF PROCEDURE: June 03, 2023 DATE H&P PERFORMED: 05/25/23 H&P UPDATE INFORMATION: I have reviewed H&P completed within last 30 days, I have examined patient prior to procedure and No changes to prior documentation PREOP DIAGNOSIS: Cardiomyopathy/aortic valve stenosis PRIMARY INDICATION FOR PROCEDURE: Patient with severe LV systolic dysfunction/aortic valve stenosis PLANNED PROCEDURE: Operation Date: 06/03/23 07:00 Proposed Procedures p [facility] [address] I50.22,I35.0(Not Applicable) - Eze Camilo MD PATIENT REASSESSED PRIOR TO SEDATION, WITH NO CHANGE NOTED: Yes PHYSICAL EXAM: alert, oriented x 3, clear to auscultation bilaterally and regular rate & rhythm AIRWAY EVAL/ANESTHESIA PLAN: normal airway, see other exam findings, ASA III, Monitored Anesthesia, Local Anesthesia, Risks, benefits & alternatives of sedation and/or procedure discussed and Patient agrees to continue as planned
[2023-06-03] MEDS: colchicine 0.6 mg Tablet PO (09:39)
[2023-06-03] MEDS: sacubitril/valsartan 24-26 mg Tablet 1 EACH PO (09:39)
[2023-06-03] MEDS: allopurinol 100 mg Tablet PO (09:40)
[2023-06-03] MEDS: potassium chloride ER 20 mEq Tablet PO (09:40)
[2023-06-03] MEDS: pantoprazole DR 40 mg Tablet PO (09:40)
[2023-06-03] MEDS: FUROsemide 40 mg Tablet 60 MG PO (09:40)
[2023-06-03] MEDS: aspirin 81 mg EC Tablet PO (09:40)
--- NOTE | 2023-06-03 10:29 | PC.NURSE ---
Patient arrived on unit at 0832. TR band on wrist with 17ml of air. Patient vitals WNL. Patient resting in bed with at bedside. Breakfast offered but patient refused.
--- NOTE | 2023-06-03 11:54 | PC.NURSE ---
TR band removed at 1140. No bleeding or hematoma noted. 2x2 and coban applied. Patient sitting comfortably in chair. at bedside.
--- NOTE | 2023-06-03 13:50 | PC.NURSE ---
Prescription called into [facility] pharmacy in [place]. Jennifer 1 tab BID Qty 60 Refills 3.
== END 2023-06-03 14:18 | disposition home or self-care (01) ==
LOC: CSU 08:26
PROVIDERS: Admitting Provider Internal Medicine Cardiovascular Disease; PCP Family Medicine; Visit Provider Internal Medicine Cardiovascular Disease
DX: I50.22 Chronic systolic (congestive) heart failure (principal); I11.0 Hypertensive heart disease with heart failure; I35.0 Nonrheumatic aortic (valve) stenosis; R06.02 Shortness of breath; Z79.82 Long term (current) use of aspirin; E78.2 Mixed hyperlipidemia; R00.0 Tachycardia, unspecified; I65.23 Occlusion and stenosis of bilateral carotid arteries
CPT/HCPCS: 36415; 80048; 85007; 85025; 93458; 96365; 99152; 99153; C1769; C1887; C1894; G0378; J1644; J2250; J3010; J3490; J7030; Q0163; Q9967

== ENCOUNTER → 2023-06-10 09:46 | Outpatient (BNVA) | payer MEDICARE, OTHER, SELFPAY | PROVIDERS: PCP Family Medicine; Visit Provider Nurse Practitioner Family | DX: I25.10 Atherosclerotic heart disease of native coronary artery without angina pectoris (principal); I50.9 Heart failure, unspecified | CPT/HCPCS: 93005 ==

== ENCOUNTER 2023-06-10 10:12 | Outpatient (CLI) | payer MEDICARE, OTHER, SELFPAY ==
[2023-06-10 10:46] LABS: Basophils % 0.6 %; Eosinophils # 0.1 10^3/uL (0.0-0.8); Hematocrit 43.2 % (37-53); Lymphocytes # 1.7 10^3/uL (0.8-4.8); Lymphocytes % 33.6 %; Mean Corpuscular HGB Conc 32.4 g/dL (30-55); Mean Corpuscular Hemoglobin 29.9 pg (27-33); Mean Corpuscular Volume 92.3 fl (82-101); Mean Platelet Volume 13.5 fL (7.4-10.4); Monocytes # 0.4 10^3/uL (0.2-0.9); Monocytes % 8.4 %; Neutrophils # 2.81 10^3/uL (1.8-7.7); Neutrophils % 55.2 %; Nucleated Red Blood Cells % 0 %; Platelet Count 114 10^3/cmm (157-399); Red Blood Count 4.68 10^6/uL (3.85-5.65); Red Cell Distribution Width 14.6 % (12.1-15.1); White Blood Count 5.09 10^3/uL (3.29-11.43)
[2023-06-10 11:10] LABS: Alanine Aminotransferase 14 U/L (0-41); Albumin Level 4.1 g/dL (3.5-5.2); Alkaline Phosphatase 61 U/L (40-130); Aspartate Amino Transferase 20 U/L (0-40); Globulin 2.8 g/dL (1.3-4.6); Total Bilirubin 0.5 mg/dL (0.15-1.2); Total Protein 6.9 g/dL (6.6-8.7); Uric Acid 7.1 mg/dL (3.4-7.0)
== END 2023-06-10 10:13 | disposition home or self-care (01) ==
LOC: LAB 10:13
PROVIDERS: PCP Family Medicine; Visit Provider Internal Medicine Rheumatology
DX: I25.10 Atherosclerotic heart disease of native coronary artery without angina pectoris (principal); Z79.899 Other long term (current) drug therapy; M10.9 Gout, unspecified; I50.9 Heart failure, unspecified
CPT/HCPCS: 36415; 80076; 82565; 84550; 85025; 86140; 93005; 99213

== ENCOUNTER → 2023-06-28 13:23 | Outpatient (BNVA) | payer MEDICARE, OTHER, SELFPAY | PROVIDERS: PCP Family Medicine; Visit Provider Thoracic Surgery (Cardiothoracic Vascular Surgery) | DX: I11.0 Hypertensive heart disease with heart failure (principal); I50.23 Acute on chronic systolic (congestive) heart failure | CPT/HCPCS: 99203 ==

== ENCOUNTER 2023-06-28 14:53 | Outpatient (CLI) | payer MEDICARE, OTHER, SELFPAY ==
[2023-06-28 16:09] LABS: Basophils % 0.5 %; Eosinophils # 0.1 10^3/uL (0.0-0.8); Lymphocytes # 1.5 10^3/uL (0.8-4.8); Lymphocytes % 23.7 %; Mean Corpuscular HGB Conc 32.1 g/dL (30-55); Mean Corpuscular Volume 93.3 fl (82-101); Mean Platelet Volume 13.7 fL (7.4-10.4); Monocytes # 0.5 10^3/uL (0.2-0.9); Monocytes % 7.2 %; Neutrophils # 4.33 10^3/uL (1.8-7.7); Neutrophils % 66.4 %; Nucleated Red Blood Cells % 0 %; Platelet Count 114 10^3/cmm (157-399); Red Cell Distribution Width 14.6 % (12.1-15.1); White Blood Count 6.51 10^3/uL (3.29-11.43)
[2023-06-28 16:23] LABS: INR 0.97 (0.8-1.2)
[2023-06-28 16:24] LABS: Slide Review Slide Review Perform
[2023-06-28 16:36] LABS: Anion Gap 15.7 (5-19); Blood Urea Nitrogen 13 mg/dL (8-23); Carbon Dioxide 28 mmol/L (22-29); Chloride 102 mmol/L (98-107); Glucose 115 mg/dL (65-115); Osmolality Calculated 295 mOsm/kg (285-295); Potassium 3.7 mmol/L (3.5-5.1); Sodium 142 mmol/L (136-145)
== END 2023-06-28 14:54 | disposition home or self-care (01) ==
PROVIDERS: Internal Medicine Cardiovascular Disease; PCP Family Medicine; Visit Provider Internal Medicine Rheumatology
DX: R06.02 Shortness of breath (principal); I25.118 Atherosclerotic heart disease of native coronary artery with other forms of angina pectoris; Z79.01 Long term (current) use of anticoagulants; I48.91 Unspecified atrial fibrillation
CPT/HCPCS: 36415; 80048; 85025; 85610; 86850; 86900

== ENCOUNTER 2023-07-19 07:05 | Day surgery (SDC) | payer MEDICARE, OTHER, SELFPAY ==
[2023-07-19] VITALS (75 sets, daily range): BP systolic 87–143; BP diastolic 56–89; PULSE 76–108; RESP 12–23; TEMP 35.9–36.4; O2SAT 92–100; BMI 31.3
--- NOTE | 2023-07-19 07:15 | SC_ITS ---
WS: [id number] EXAMINATION: C-arm FL for Pacemaker ORDER DATE: 07/19/2023 7:15 AM REASON FOR EXAM: AICD implantation COMPARISON: None available. FLUOROSCOPY TIME: 191.8 seconds # OF SPOT FILMS: None FINDINGS: None IMPRESSION: Fluoroscopy for pacemaker placement.
[2023-07-19] MEDS: sodium chloride 0.9% 1,000 ML 30 ML IV (07:41)
[2023-07-19 08:25] LABS: Add Urine Microscopic? NO; Charge for UA Resulting for Rev
[2023-07-19 08:41] LABS: Bilirubin Urine Neg (Negative); Blood Urine Neg (Negative); Glucose Urine UA Norm (Normal); Ketones Urine Negative (Negative); Leukocyte Esterase Urine Negative (Negative); Nitrate Urine Negative (Negative); Protein Urine Neg (Negative); Specific Gravity, Urine 1.025 (1.005-1.030); Urine Appearance Clear (CLEAR); Urine Color Yellow (Yellow); Urobilinogen Urine Norm (Negative); pH Urine 5 (5-7)
--- NOTE | 2023-07-19 09:18 | W.PM.OPSUD ---
Surgery/Procedure H&P Update DATE OF PROCEDURE: July 19, 2023 DATE H&P PERFORMED: 06/28/23 H&P UPDATE INFORMATION: I have reviewed H&P completed within last 30 days, I have examined patient prior to procedure and No changes to prior documentation PREOP DIAGNOSIS: Congestive heart failure medically refractory PLANNED PROCEDURE: Operation Date: 07/19/23 08:55 Proposed Procedures p Defibrillator Placement 52056,I42.9 I50.22 I 42.8,Inpatient(Not Applicable) - Ousmane Stewart MD
[2023-07-19 09:24] LABS: Blood Urea Nitrogen 19 mg/dL (8-23); Calcium 9.3 mg/dL (8.5-10.5); Carbon Dioxide 31 mmol/L (22-29); Chloride 102 mmol/L (98-107); Glucose 92 mg/dL (65-115); Osmolality Calculated 296 mOsm/kg (285-295); Sodium 142 mmol/L (136-145)
--- NOTE | 2023-07-19 09:31 | P.ANESASSM_ITS ---
Pre-Anesthetic Assessment Height/Weight: Height 1.7 m Weight 90.718 kg Temp Pulse Resp BP Pulse Ox O2 Del Method 97 F L 97 18 143/89 98 Room Air 07/19/23 07:23 07/19/23 07:23 07/19/23 07:23 07/19/23 07:23 07/19/23 07:23 07/19/23 07:32 Preop Diagnosis: Congestive heart failure medically refractory Operation Date: 07/19/23 08:55 Proposed Procedures p Defibrillator Placement 20493,I42.9 I50.22 I 42.8,Inpatient(Not Applicable) - Ousmane Stewart MD Familial anesthetic complications: None Was Beta Faizan taken within 24 hours: N/A Was Clonidine taken within 24 hours: N/A Last intake: Intake Last Liquid Date 07/18/23 Last Liquid Time 21:00 Last Solid Date 07/18/23 Last Solid Time 17:00 Social No alcohol and No tobacco Exam alert, oriented x 3, clear to auscultation bilaterally and regular rate & rhythm Airway Mallampati: Class III Dentition: false CV/HEM Arrythmia, Coronary Artery Disease (severe, medical management) and Congestive Heart Failure AV stenosis, area 0.9 cm2, EF 11 to 25%, GI Gastroesophageal Reflux Disease Metabolic Hyperlipidemia [facility] [place] Rheumatoid Arthritis Neuropsych CEA Anesthetic Plan ASA status: 4 Anesthesia: MAC Risk of > 500 ml blood loss (7ml/kg in children): No Medications/Allergies Home Medications Medication Instructions Recorded Confirmed Last Taken Type aspirin 81 mg tablet,delayed 81 mg PO DAILY 06/26/19 07/18/23 07/14/23 History release (Adult Aspirin Regimen) esomeprazole magnesium 40 mg 40 mg PO DAILY 07/14/21 07/18/23 07/18/23 History capsule,delayed release simvastatin 80 mg tablet See Rx Instructions .Route 07/29/22 07/18/23 07/18/23 Rx .COMPLEX #90 tabs diclofenac sodium 1 % topical gel 4 g topical QID PRN Rash 02/23/23 07/18/23 07/17/23 History furosemide 40 mg tablet See Rx Instructions .Route 05/03/23 07/18/23 07/18/23 Rx .COMPLEX #135 tabs potassium chloride 10 mEq 20 meq (2 x 10 mEq) PO BID #360 05/03/23 07/18/23 07/18/23 Rx capsule,extended release caps hydroxychloroquine 200 mg tablet 200 mg PO BID #180 tabs 05/11/23 07/18/23 07/18/23 Rx prednisone 20 mg tablet See Rx Instructions PO .COMPLEX 05/11/23 07/18/23 07/17/23 Rx PRN joint pain flare #30 tabs colchicine 0.6 mg tablet 0.6 mg PO DAILY #30 tabs 05/20/23 07/18/23 07/17/23 Rx sacubitril 49 mg-valsartan 51 mg 1 tab PO BID #60 tabs 06/03/23 07/18/23 07/18/23 Rx tablet (Entresto) febuxostat 40 mg tablet 40 mg PO DAILY #30 tabs 06/15/23 07/18/23 07/18/23 Rx Allergies Allergy/AdvReac Type Severity Reaction Status Date / Time codeine Allergy unknown Verified 07/19/23 07:20 ezetimibe [From Vytorin] Allergy shortness Verified 07/19/23 07:20 of breath rosuvastatin [From Crestor] Allergy shortness Verified 07/19/23 07:20 of breath Current Medications Generic Name Dose Route Start Last Admin Trade Name Freq PRN Reason Stop Dose Admin Sodium Chloride 1,000 mls @ 30 mls/hr 07/19/23 07:15 07/19/23 07:41 Sodium Chloride 0.9% IV 07/20/23 07:14 30 mls/hr .Q24H JOE Administration PFSH Anesthesia Medical History Congestive heart failure Chest pain Osteoarthritis of hands, bilateral Melanoma Postop carotid endarterectomy surveillance, encounter for Leg edema Inflammatory arthritis High risk medication use Osteoarthritis Gout, arthritis Atherosclerotic heart disease of [place] coronary artery without angina pectoris Pt is not interested any follow up stress test Other specified rheumatoid arthritis, multiple sites CAD (coronary artery disease) Bilateral carotid artery stenosis Hypertension Hyperlipidemia FHx: total knee replacement Osteoarthritis involving multiple joints on both sides of body Seronegative rheumatoid arthritis Surgical History Hx of cataract extraction 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 H/O carotid endarterectomy RIGHT SIDE 04/2019 Family History Father CAD (coronary artery disease) [place], unknown age of onset Stroke Brother CAD (coronary artery disease) unknown age of onset Mother Chronic kidney disease (CKD) Other Family history of premature coronary artery disease Hypertension Denies family history of Rheumatoid arthritis Diabetes Lupus Clotting disorder Dementia Suicide Anesthesia complication Bleeding disorder Lung disease Cancer Social History Smoking and tobacco/nicotine status: never used tobacco/nicotine Quit status (tobacco/nicotine): has quit using Year quit tobacco: 1979 Alcohol intake: never Substance/Drug Use: never Marital status: Data Anesthesia 07/19/23 08:58 07/19/23 08:58 Short CBC 07/19/23 Range/Units 08:58 WBC Cancelled Hgb Cancelled Hct Cancelled MCV Cancelled Plt Count Cancelled Neut % (Auto) Cancelled Neut # (Auto) Cancelled BMP 07/19/23 08:58 Sodium 142 Chloride 102 BUN 19 Creatinine 0.9 Glucose 92 Calcium 9.3 Urine 07/19/23 Range/Units 07:35 Urine Color Yellow (Yellow) Urine Appearance Clear (CLEAR) Urine pH 5 (5-7) Ur Specific Mozier 1.025 (1.005-1.030) Urine Protein Neg (Negative) Urine Glucose (UA) Norm (Normal) Urine Ketones Negative (Negative) Urine Nitrate Negative (Negative) Urine Bilirubin Neg (Negative) Ur Leukocyte Esterase Negative (Negative) Cardiac Studies: 2 Echocardiogram 02/01/23 Echocardiogram Limited Views 05/04/23 Sestamibi Stress Test (Cardiology) 02/14
[2023-07-19 09:39] LABS: Basophils % 0.4 %; Eosinophils % 0.6 %; Hematocrit 44.6 % (37-53); Lymphocytes # 1.8 10^3/uL (0.8-4.8); Lymphocytes % 36.5 %; Mean Corpuscular HGB Conc 32.7 g/dL (30-55); Mean Corpuscular Hemoglobin 30.4 pg (27-33); Mean Corpuscular Volume 92.7 fl (82-101); Mean Platelet Volume 13.3 fL (7.4-10.4); Monocytes # 0.4 10^3/uL (0.2-0.9); Monocytes % 7.6 %; Neutrophils # 2.74 10^3/uL (1.8-7.7); Neutrophils % 54.7 %; Nucleated Red Blood Cells % 0 %; Platelet Count 134 10^3/cmm (157-399); Red Blood Count 4.81 10^6/uL (3.85-5.65); Red Cell Distribution Width 14.2 % (12.1-15.1); White Blood Count 5.01 10^3/uL (3.29-11.43)
[2023-07-19 09:44] LABS: Anion Gap 12.9 (5-19); Potassium 3.9 mmol/L (3.5-5.1)
[2023-07-19 09:46] LABS: Slide Review Slide Review Perform
[2023-07-19] MEDS: ceFAZolin 2,000 MG in sodium chloride 0.9% (plus) 50 ML 100 MG IV (10:02)
--- NOTE | 2023-07-19 10:33 | SUR.OPER ---
called and notified her of surgical start.
[2023-07-19] MEDS: ceFAZolin 1,000 mg SDV 1000 MG IRRIGATION (10:38)
[2023-07-19] MEDS: lidocaine 1% INJ 10 mL (per mL) 20 ML XX (10:38)
--- NOTE | 2023-07-19 11:24 | XR_ITS ---
WS: [id number] XR chest 1V portable [id number] REASON FOR EXAM: post op FINDINGS: Cardiac device of the left chest with leads to the left subclavian vein to the right ventricular apex . Moderate cardiomegaly. Mild central pulmonary venous congestion. No edema or infiltrate. IMPRESSION: Cardiac device in proper position with no complication.
--- NOTE | 2023-07-19 11:50 | PM.OP ---
Operative Report Date of procedure: July 19, 2023 Pre-op diagnosis: Congestive heart failure: Medically refractory Post-op diagnosis: same Procedure done: Automatic implantable cardiac defibrillator lead implantation: Right ventricular lead Implants: Automatic implantable cardiac defibrillator generator Right ventricular lead Pathology: none sent Surgeon: Ousmane Stewart MD Anesthesia: MAC and Local Complications: None Condition: stable Disposition: PACU Brief History: Mr. Lazo is an 78-year-old gentleman referred to our service due to medically refractory congestive heart failure and cardiomyopathy. He has had a steady detriment of his ejection fraction over the previous 2 years and is followed by cardiology which is now down to 20 to 30%. Because of his high risk for sudden events, defibrillator implantation has been recommended rationale, details, risk of the procedure were carefully and frankly discussed with Mr. Lazo and his family. All questions been answered. Proper consents have been reviewed and signed. Procedure: Procedure: Mr. Lazo was taken to the OR suite and placed in the supine position over a shoulder roll. He received conscious sedation with continuous anesthesia monitoring by. He is entire chest was sterilely prepped and draped. Appropriate timeout was completed and confirmed by all surgical team members present. 1% lidocaine was infiltrated in the left subclavicular region. While in Trendelenburg position, utilizing modified seldinger technique, a guidewire was placed in the left subclavian vein utilizing hand-held ultrasound guidance. This was confirmed in position by fluoroscopy. Next, after infiltration with lidocaine, a subcutaneous pocket was created beginning from the exit point of the guidewire and extending laterally and inferiorly. Cautery was utilized to create the pocket just above the pectoralis musculature. Hemostasis was confirmed. An antibiotic-soaked sponge was placed in the wound. A dilator and tear-away sheath was placed over the guidewire and advanced under fluoroscopy. Guidewire and dilator were removed. Next using a combination of curved and straight stylettes, the right ventricular lead was placed in position by fluoroscopy. The distal screw was extended. Interrogation was then performed confirming appropriate parameters. The tear-away sheath was then removed and the ventricular lead was sewn to the floor of the subcutaneous pocket. Next, atrial lead was placed in a similar fashion with fluoroscopic guidance. Generator was brought into the field, and after confirmation of hemostasis in the subcutaneous pocket, the leads was connected to the generator with appropriate capture. The entire system was interrogated by fluoroscopy. Leads and generator were secured in the pocket. Sponge and needle count was correct. The wound was then closed in 2 layers of 3-0 Vicryl suture. Skin was reapproximated in a subcuticular manner with 4-0 Monocryl suture. A pressure dressing was applied. The left arm was placed in a sling. Mr. Lazo had equal breath sounds bilaterally. He was then transferred to the PACU, where chest x-ray is currently pending. I did counseling center director with the family at the completion of the procedure. Following are the specifics of this system: Right ventricular lead is 62 cm and model 6935M. Serial number [id number] Ventricular lead had sensing of 14.7 mV with an impedance of 684 ohms. Threshold was 0.625 V Eventure Interactive generator: Model # [id number] Serial #[id number]
--- NOTE | 2023-07-19 12:10 | ANE.PACU2 ---
Inpatient post-anesthesia follow up: Airway intact: Yes Vital signs: Temperature 96.7 F Pulse Rate 86 Respiratory Rate 18 Blood Pressure 105/73 Pulse Oximetry 100 Oxygen Delivery Me thod Room Air Oxygen Flow Rate 7 Fraction of Inspir ed Oxygen Hydration adequate: Yes Nausea and vomiting: No Pain level: 1 Mental status: Baseline
--- NOTE | 2023-07-19 16:54 | PC.NURSE ---
1615-report given to nurse taking pt on CSU. Pt transferred via gurney, pt to room and care turned over.
--- NOTE | 2023-07-19 17:23 | PC.NURSE ---
received from pacu via stretcher at 1530.pt is alert and awake.denies pain at present.sr on monitor.left upper chest with bulky pressure drsg on.left arm in sling.instructed in activity restrictions s/p aicd placement...and instructed pt to notify staff for any bleeding,numbness,pain,or for any concern at all. pt verb understanding of instructions
[2023-07-19] MEDS: hydroxychloroquine 200 mg Tablet PO (18:30)
[2023-07-20] VITALS (106 sets, daily range): BP systolic 114–125; BP diastolic 62–99; PULSE 63–107; RESP 10–25; TEMP 36.7; O2SAT 86–100
--- NOTE | 2023-07-20 06:32 | P.DS_ITS ---
Discharge Providers Date of Admission: 07/19/23 16:28 Date of Discharge: July 20, 2023 Attending Provider at Admission: Ousmane Stewart MD Attending Provider at Discharge: Ousmane Stewart MD Primary Care Provider: Nicolás Alegre MD Diagnoses at Discharge Discharge Diagnosis (1) Chronic systolic (congestive) heart failure: Status: Acute Reason for Visit Reason for Visit: 150.22 I42.9 Hospital Course Hospital Course Mr. Lazo is a 78-year-old gentleman whom been referred to our service for AICD implantation related to medically refractory cardiomyopathy with congestive heart failure. He has had steady detriment of his ejection fraction from 2 years ago now down to 20/30%. Rationale for AICD implantation was carefully discussed. He agreed and wished to proceed. Appropriate consents were reviewed and signed. He was electively admitted on July 19 and underwent single-lead AICD implantation. Postoperatively, he, last on the medical/surgical johnson. He has been doing well. Device interrogation this morning reveals appropriate function. Outer surgical dressing was removed. Inner surgical dressing remains clean and dry. There is no substantial swelling in the operative area. Postop discomfort is under good control. Mr. Lazo we discharged home today in stable condition for scheduled follow-up and [facility] in 1 week. At the time of discharge, he is in stable condition. Physical Exam Chest: OTHER: Surgical site clean and dry. Inner dressing remains in place. Minimal swelling in the operative area. Resp: COMMON NORMALS: normal respiratory effort and clear to auscultation bilaterally AUSCULTATION: clear to auscultation bilaterally Cardio: COMMON NORMALS: regular rate, regular rhythm, S1 normal heart sound present and No murmurs present (Cardio) RATE: regular rate RHYTHM: regular rhythm HEART SOUNDS: S1 normal heart sound present Extremity: COMMON NORMALS: no clubbing, cyanosis or edema Discharge Data Studies Completed and Pending Completed Studies During Hospitalization Category Date Time Status XR chest 1V portable [id number] Routine Exams 07/19/23 11:24 Completed Pending at discharge Category Date Time Status C-arm FL for Pacemaker Routine Exams 07/19/23 07:15 Taken Laboratory Results WBC 5.01 10^3/uL (3.29-11.43) 07/19/23 09:22 Corrected WBC Cancelled 07/19/23 08:58 RBC 4.81 10^6/uL (3.85-5.65) 07/19/23 09:22 Hgb 14.60 g/dL (11.27-16.99) 07/19/23 09:22 Hct 44.6 % (37-53) 07/19/23 09:22 MCV 92.7 fl (82-101) 07/19/23 09:22 MCH 30.4 pg (27-33) 07/19/23 09:22 MCHC 32.7 g/dL (30-55) 07/19/23 09:22 RDW 14.2 % (12.1-15.1) 07/19/23 09:22 Plt Count 134 10^3/cmm (157-399) L 07/19/23 09:22 MPV 13.3 fL (7.4-10.4) H 07/19/23 09:22 Gran % Cancelled 07/19/23 08:58 Neut % (Auto) 54.7 % 07/19/23 09:22 Lymph % (Auto) 36.5 % 07/19/23 09:22 [place] % (Auto) 7.6 % 07/19/23 09:22 Eos % (Auto) 0.6 % 07/19/23 09:22 Baso % (Auto) 0.4 % 07/19/23 09:22 Neut # (Auto) 2.74 10^3/uL (1.8-7.7) 07/19/23 09:22 Lymph # (Auto) 1.8 10^3/uL (0.8-4.8) 07/19/23 09:22 [place] # (Auto) 0.4 10^3/uL (0.2-0.9) 07/19/23 09:22 Eos # (Auto) 0.0 10^3/uL (0.0-0.8) 07/19/23 09:22 Baso # (Auto) 0.0 10^3/uL (0.0-0.1) 07/19/23 09:22 Absolute Gran (auto) Cancelled 07/19/23 08:58 Nucleated RBC % (auto) 0 % 07/19/23 09:22 Nucleated RBCs # 0.0 /100WBC 07/19/23 09:22 Sodium 142 mmol/L (136-145) 07/19/23 08:58 Potassium 3.9 mmol/L (3.5-5.1) 07/19/23 08:58 Chloride 102 mmol/L (98-107) 07/19/23 08:58 Carbon Dioxide 31 mmol/L (22-29) H 07/19/23 08:58 Anion Gap 12.9 (5-19) 07/19/23 08:58 BUN 19 mg/dL (8-23) 07/19/23 08:58 Creatinine 0.9 mg/dL (0.7-1.2) 07/19/23 08:58 GFR Calculation Not Reportable 07/19/23 08:58 Glucose 92 mg/dL (65-115) 07/19/23 08:58 Calculated Osmolality 296 mOsm/kg (285-295) H 07/19/23 08:58 Calcium 9.3 mg/dL (8.5-10.5) 07/19/23 08:58 Urine Color Yellow (Yellow) 07/19/23 07:35 Urine Appearance Clear (CLEAR) 07/19/23 07:35 Urine pH 5 (5-7) 07/19/23 07:35 Ur Specific [place] 1.025 (1.005-1.030) 07/19/23 07:35 Urine Protein Neg (Negative) 07/19/23 07:35 Urine Glucose (UA) Norm (Normal) 07/19/23 07:35 Urine Ketones Negative (Negative) 07/19/23 07:35 Urine Blood Neg (Negative) 07/19/23 07:35 Urine Nitrate Negative (Negative) 07/19/23 07:35 Urine Bilirubin Neg (Negative) 07/19/23 07:35 Urine Urobilinogen Norm mg/dL (Negative) 07/19/23 07:35 Ur Leukocyte Esterase Negative (Negative) 07/19/23 07:35 Procedures Performed AICD implantation on July 19, 2023 Vitals Last Vital Signs Temp 98.1 F 07/20/23 00:00 Pulse 77 07/20/23 06:00 Resp 16 07/20/23 05:55 BP 114/62 07/20/23 06:15 Pulse Ox 93 07/20/23 05:55 O2 Del Method Room Air 07/20/23 00:00 O2 Flow Rate 7 07/19/23 11:47 Discharge Plan Discharge Patient Disposition: Home Condition: Stable Prescriptions: New hydrocodone-acetaminophen 5-325 mg Tablet 1 tab PO Q6H PRN (Reason: Moderate Pain) Qty: 12 0RF sulfamethoxazole-trimethoprim [Bactrim DS] 800-160 mg tablet 1 tab PO BID 2 Days Qty: 4 0RF Continued esomeprazole magnesium 40 mg capsule,delayed release(DR/EC) 40 mg PO DAILY aspirin [Adult Aspirin Regimen] 81 mg tablet,delayed release (DR/EC) 81 mg PO DAILY hydroxychloroquine 200 mg tablet 200 mg PO BID Qty: 180 1RF prednisone 20 mg tablet See Rx Instructions PO .COMPLEX PRN (Reason: joint pain flare) Qty: 30 1RF Rx Instructions: take 1 or 2 tab daily for 7 days then call with update... diclofenac sodium 1 % gel 4 g topical QID PRN (Reason: Rash) Rx Instructions: apply to affected area as needed simvastatin 80 mg tablet See Rx Instructions .ROUTE .COMPLEX Qty: 90 3RF Dose Instruction: Take 1 tablet by mouth once daily Rx Instructions: Take 1 tablet by mouth once daily furosemide 40 mg tablet See Rx Instructions .ROUTE .COMPLEX Qty: 135 3RF Dose Instruction: TAKE 1 & 1/2 (ONE & ONE-HALF) TABLETS BY MOUTH TWICE DAILY Rx Instructions: TAKE 1 & 1/2 (ONE & ONE-HALF) TABLETS BY MOUTH TWICE DAILY potassium chloride 10 mEq capsule, extended release 20 meq PO BID Qty: 360 3RF colchicine 0.6 mg tablet 0.6 mg PO DAILY Qty: 30 3RF febuxostat 40 mg tablet 40 mg PO DAILY Qty: 30 3RF Entresto 49-51 mg tablet 1 tab PO BID Qty: 60 5RF Discharge Orders: Discharge Order (Routine); Ordered 07/20/23 Ordered By: Ousmane Stewart Referrals: [facility] [Provider Group] - 1 week (Pacemaker clinic) Discharge Diet: Usual diet Discharge Activity: Limit activity as instructed Patient Instructions: Opioid Safety Activity Restrictions/Additional Instructions: May remove bandage in 2 days May begin daily showers in 3 days Dry incision carefully after showers. May re-cover if desired to prevent irritation from clothing. No swimming or tub baths x 2 weeks No ointments on incision Report drainage, redness, heat, fever, increased pain, or swelling to clinic Do not raise left arm above eye level for 1 week Take antibiotic as prescribed for the next 2 days until completed Discharge Attestations Time Spent in Discharge Care*: less than 30 min Specific Discharge Activities: educating patient, discussing with supportive employment case manager/social workers/dc planners, documenting/other paperwork and evaluating patient/reviewing data Status at Discharge: Cognitive status at discharge: cognitively intact , Behavioral status at discharge: cooperative , Functional status at discharge: independent ambulation , Overall status at discharge: patient is back to [facility] Clinical Quality Measures [ No reported AMI, CVA or VTE this stay] Coding Level of Care Code Acute Code for Chg Fwd Diagnoses Chronic systolic (congestive) heart failure I50.22
[2023-07-20] MEDS: hydroxychloroquine 200 mg Tablet PO (09:32)
[2023-07-20] MEDS: sacubitril/valsartan 24-26 mg Tablet 2 EACH PO (09:32)
[2023-07-20] MEDS: colchicine 0.6 mg Tablet PO (09:32)
[2023-07-20] MEDS: pantoprazole DR 40 mg Tablet PO (09:32)
[2023-07-20] MEDS: aspirin 81 mg EC Tablet PO (09:33)
[2023-07-20] MEDS: potassium chloride ER 10 mEq Tablet 20 MEQ PO (09:33)
--- NOTE | 2023-07-20 12:26 | PC.NURSE ---
discharge instructions given and explained.pt verb understanding.discharged via w/c to exit.spouse to drive pt home
== END 2023-07-20 12:28 | disposition home or self-care (01) ==
LOC: OR 07:06 → CSU 07-20 06:26
PROVIDERS: PCP Family Medicine; Visit Provider Thoracic Surgery (Cardiothoracic Vascular Surgery)
PROC: 0JH608Z Insertion of Defibrillator Generator into Chest Subcutaneous Tissue and Fascia, Open Approach (ICD-10-PCS; CPT 33249; principal; 2023-07-19 08:55)
DX: I25.5 Ischemic cardiomyopathy (principal); I11.0 Hypertensive heart disease with heart failure; I50.22 Chronic systolic (congestive) heart failure; I25.10 Atherosclerotic heart disease of native coronary artery without angina pectoris; K21.9 Gastro-esophageal reflux disease without esophagitis; E78.5 Hyperlipidemia, unspecified; M06.9 Rheumatoid arthritis, unspecified; Z79.82 Long term (current) use of aspirin; Z87.891 Personal history of nicotine dependence
CPT/HCPCS: 33249; 71045; 76000; 80048; 81003; 85025; C1722; C1777; J0690; J2371; J2704; J3010; J7030

== ENCOUNTER → 2023-08-01 12:44 | Outpatient (BNVA) | payer MEDICARE, OTHER, SELFPAY | PROVIDERS: PCP Family Medicine; Visit Provider Nurse Practitioner Family | DX: Z95.810 Presence of automatic (implantable) cardiac defibrillator (principal) | CPT/HCPCS: 99213 ==

== ENCOUNTER → 2023-08-23 10:22 | Outpatient (BNVA) | payer MEDICARE, OTHER, SELFPAY | PROVIDERS: PCP Family Medicine; Visit Provider Internal Medicine Rheumatology | DX: Z79.899 Other long term (current) drug therapy (principal); M10.9 Gout, unspecified; M19.90 Unspecified osteoarthritis, unspecified site | CPT/HCPCS: 99214 ==

== ENCOUNTER → 2023-08-25 10:43 | Outpatient (BNVA) | payer MEDICARE, OTHER, SELFPAY | PROVIDERS: PCP Family Medicine; Visit Provider Internal Medicine Cardiovascular Disease | DX: I25.10 Atherosclerotic heart disease of native coronary artery without angina pectoris (principal); I11.0 Hypertensive heart disease with heart failure; I50.23 Acute on chronic systolic (congestive) heart failure; Z95.810 Presence of automatic (implantable) cardiac defibrillator; E78.2 Mixed hyperlipidemia; I35.0 Nonrheumatic aortic (valve) stenosis | CPT/HCPCS: 99214 ==

== ENCOUNTER 2023-09-02 10:50 | Outpatient (CLI) | payer MEDICARE, OTHER, SELFPAY ==
--- NOTE | 2023-09-02 11:15 | USCV_ITS ---
Nicolás Lazo Age: 78 Gender: M : 1945 Exam Date: 09/02/2023 11:04 Ordering Phys: Eze Camilo MD ([email or web address]) Technologist: [place] [facility] [place]: Stenosis Risk Factors: Previous Vascular Surgery: Right Brachial BP: / Left Brachial BP: / Right Left Velocity (cm/s) Spectral Plaque Velocity (cm/s) Spectral Plaque Syst/Diast Broadening Syst/Diast Broadening 99.80/ 23.70 Prox CCA 78.00 / 18.00 84.30/ 20.10 Mid CCA 119.00/ 20.40 108.10/24.30 Distal CCA 86.20 / 20.40 79.90/ 18.00 Prox ICA 75.50 / 14.70 79.60/ 21.30 Mid ICA 51.00 / 15.10 76.60/ 25.90 Distal ICA 48.60 / 16.40 131.90 ECA 85.90 0.70 ICA/CCA 0.90 Antegrade Vertebral Antegrade 32.80/ 8.00 cm/s 44.20/ 11.50 cm/s Tri Subclavian Tri 89.80 82.50 CONCLUSIONS Right ICA stenosis <50%. Mild atheromatous plaque right carotid bulb/ICA. Left ICA stenosis <50%. Moderate atheromatous plaque left carotid bulb/ICA. Normal antegrade Doppler flow noted in the right vertebral artery. Normal antegrade Doppler flow noted in the left vertebral artery. Quang Montero MD (Electronically Signed) Final Date: 02 September 2023 14:42 S
== END 2023-09-02 10:51 | disposition home or self-care (01) ==
LOC: RAD 10:50
PROVIDERS: PCP Family Medicine; Visit Provider Internal Medicine Cardiovascular Disease
DX: I65.23 Occlusion and stenosis of bilateral carotid arteries (principal)
CPT/HCPCS: 93880

== ENCOUNTER → 2023-11-07 16:42 | Outpatient (BNVA) | payer MEDICARE, OTHER, SELFPAY | PROVIDERS: PCP Family Medicine; Visit Provider Internal Medicine Cardiovascular Disease | DX: R06.02 Shortness of breath (principal); Z79.899 Other long term (current) drug therapy; I10 Essential (primary) hypertension; I50.23 Acute on chronic systolic (congestive) heart failure; Z95.810 Presence of automatic (implantable) cardiac defibrillator; E78.2 Mixed hyperlipidemia; I65.23 Occlusion and stenosis of bilateral carotid arteries; I25.10 Atherosclerotic heart disease of native coronary artery without angina pectoris; I35.0 Nonrheumatic aortic (valve) stenosis | CPT/HCPCS: 80048; 83880; 99214 ==

== ENCOUNTER → 2024-01-24 11:08 | Outpatient (BNVA) | payer MEDICARE, OTHER, SELFPAY | PROVIDERS: PCP Family Medicine; Visit Provider Internal Medicine Rheumatology | DX: M10.9 Gout, unspecified (principal); Z79.899 Other long term (current) drug therapy; M19.90 Unspecified osteoarthritis, unspecified site; Z72.0 Tobacco use | CPT/HCPCS: 99214 ==

== ENCOUNTER → 2024-05-14 14:57 | Outpatient (BNVA) | payer MEDICARE, OTHER, SELFPAY | PROVIDERS: PCP Family Medicine; Visit Provider Internal Medicine Cardiovascular Disease | DX: R06.02 Shortness of breath (principal); R00.0 Tachycardia, unspecified; I25.10 Atherosclerotic heart disease of native coronary artery without angina pectoris; Z95.810 Presence of automatic (implantable) cardiac defibrillator; I35.0 Nonrheumatic aortic (valve) stenosis; E78.2 Mixed hyperlipidemia; I10 Essential (primary) hypertension; I65.23 Occlusion and stenosis of bilateral carotid arteries | CPT/HCPCS: 36415; 80048; 83880; 99214 ==

== ENCOUNTER 2024-07-11 12:28 | Outpatient (CLI) | payer MEDICARE, OTHER, SELFPAY ==
--- NOTE | 2024-07-11 12:35 | USCV_ITS ---
Nicolás Lazo Age: 79 Gender: M : 1945 Exam Date: 07/11/2024 12:58 Ordering Phys: Eze Camilo MD ([email or web address]) Technologist: [place] [facility] [facility] [place]ication: cad BP: 126 / 86 HR: 84 Rhythm: Sinus Technical Quality: Adequate MEASUREMENTS (Male / Female) Normal Values 2D ECHO LVOT Diameter 2.0 cm LV Ejection Fraction MOD 4C 16.6 % LV Ejection Fraction MOD 2C 40.2 % LV Ejection Fraction 2C AL 40.9 % LA Diameter 4.2 cm LA Sys Volume AL 74.9 cm cubed LA Sys Volume Index AL 36.0 cm cubed/m squared Aorta at Sinotubular Diameter 2.2 cm M-MODE LA Ao Ratio MM 1.7 AV Cusp Separation MM 1.2 cm DOPPLER AV Peak Velocity 215.0 cm/s LVOT Peak Velocity 96.0 cm/s AV Area Cont Eq vti 1.6 cm squared AV Area Cont Eq pk 1.4 cm squared MV Peak Velocity 137.0 cm/s MV Area PHT 4.0 cm squared Mitral E to A Ratio 0.5 TV Peak E Velocity 58.0 cm/s PV Peak Velocity 128.5 cm/s FINDINGS Left Ventricle Severe diffuse hypokinesia of the left ventricle with an ejection fraction of 17%. Moderately dilated LV cavity.Grade I/IV diastolic dysfunction (abnormal relaxation filling pattern), normal to mildly elevated filling pressures. Right Ventricle Pacemaker/defibrillator wire in the right ventricle. Appears to be normal size and ejection fraction Right Atrium Appears to be normal size Left Atrium Mildly increased left atrial size. Mitral Valve Thickened mitral valve. Mild mitral valve regurgitation. Aortic Valve Thickened aortic valve. Tricuspid Valve No gross abnormalities noted Pulmonic Valve Pulmonic valve not well visualized. Pericardium No pericardial effusion. Aorta Normal aortic annulus size. IVC Inferior vena cava not visualized. CONCLUSIONS Severe diffuse hypokinesia of the left ventricle with an ejection fraction of 17%. Moderately dilated LV cavity.Grade I/IV diastolic dysfunction (abnormal relaxation filling pattern), normal to mildly elevated filling pressures. Pacemaker/defibrillator wire in the right ventricle. Appears to be normal size and ejection fraction. Mildly increased left atrial size. Thickened mitral valve. Mild mitral valve regurgitation. Thickened aortic valve. Pacemaker/defibrillator wire in the right ventricle. Compared to the study from 05/04/2023, there is worsening of the LV systolic function from 25 - 30% to 17% Dr Eze Camilo MD [facility] (Electronically Signed) Final Date: 11 July 2024 23:22 S
== END 2024-07-11 12:29 | disposition home or self-care (01) ==
LOC: RAD 12:30
PROVIDERS: PCP Family Medicine; Visit Provider Internal Medicine Cardiovascular Disease
DX: I51.7 Cardiomegaly (principal); R93.1 Abnormal findings on diagnostic imaging of heart and coronary circulation; Z95.0 Presence of cardiac pacemaker; I34.0 Nonrheumatic mitral (valve) insufficiency; I35.8 Other nonrheumatic aortic valve disorders
CPT/HCPCS: 93306

== ENCOUNTER 2024-07-17 09:59 | Outpatient (CLI) | payer MEDICARE, OTHER, SELFPAY | END 2024-07-17 10:00 | disposition home or self-care (01) | LOC: LAB 10:01 | PROVIDERS: PCP Family Medicine; Visit Provider Internal Medicine Rheumatology | DX: I11.0 Hypertensive heart disease with heart failure (principal); I50.22 Chronic systolic (congestive) heart failure; I25.10 Atherosclerotic heart disease of native coronary artery without angina pectoris; I35.0 Nonrheumatic aortic (valve) stenosis; E78.2 Mixed hyperlipidemia; I65.23 Occlusion and stenosis of bilateral carotid arteries; Z87.891 Personal history of nicotine dependence; Z79.899 Other long term (current) drug therapy; M10.9 Gout, unspecified | CPT/HCPCS: 36415; 80076; 82565; 84550; 85025; 85652; 86140; 99213 ==

== ENCOUNTER → 2024-07-26 10:38 | Outpatient (BNVA) | payer MEDICARE, OTHER, SELFPAY | PROVIDERS: PCP Family Medicine; Visit Provider Internal Medicine Rheumatology | DX: M10.9 Gout, unspecified (principal); Z79.899 Other long term (current) drug therapy | CPT/HCPCS: 99214 ==

== ENCOUNTER → 2024-08-23 09:59 | Outpatient (BNVA) | payer MEDICARE, OTHER, SELFPAY | PROVIDERS: PCP Family Medicine; Visit Provider Nurse Practitioner Family | DX: I11.0 Hypertensive heart disease with heart failure (principal); I50.22 Chronic systolic (congestive) heart failure; I25.10 Atherosclerotic heart disease of native coronary artery without angina pectoris; Z95.810 Presence of automatic (implantable) cardiac defibrillator; Z87.891 Personal history of nicotine dependence | CPT/HCPCS: 99214 ==

== ENCOUNTER 2024-08-24 08:53 | Outpatient (CLI) | payer MEDICARE, OTHER, SELFPAY ==
--- NOTE | 2024-08-24 09:15 | USCV_ITS ---
Nicolás Lazo Age: 79 Gender: M : 1945 Exam Date: 08/24/2024 09:01 Ordering Phys: Karen Russ NP Technologist: [place] Exam Location: [facility] – [place] Indication: stenosis Risk Factors: Previous Vascular Surgery: Right Brachial BP: / Left Brachial BP: / Right Left Velocity (cm/s) Spectral Plaque Velocity (cm/s) Spectral Plaque Syst/Diast Broadening Syst/Diast Broadening 91.10/ 25.40 Prox CCA 85.20 / 22.00 98.40/ 27.20 Mid CCA 80.10 / 23.70 92.60/ 27.10 Distal CCA 71.60 / 22.00 86.10/ 15.70 Prox ICA 59.20 / 15.10 67.50/ 22.40 Mid ICA 50.70 / 20.20 62.30/ 25.80 Distal ICA 54.30 / 23.80 100.00 ECA 76.20 0.90 ICA/CCA 0.80 Antegrade Vertebral Antegrade 35.90/ 13.60 cm/s 23.80/ 8.10 cm/s Tri Subclavian Tri 83.50 39.80 CONCLUSIONS Right ICA stenosis <50%. Prior CEA. Left ICA stenosis <50%. Prior CEA. Intimal thickening in the common carotid arteries and internal carotid arteries bilaterally. Normal antegrade Doppler flow noted in the right vertebral artery. Normal antegrade Doppler flow noted in the left vertebral artery. Quang Montero MD (Electronically Signed) Final Date: 24 August 2024 09:55 S
== END 2024-08-24 08:54 | disposition home or self-care (01) ==
PROVIDERS: PCP Family Medicine; Visit Provider Nurse Practitioner Family
DX: Z48.812 Encounter for surgical aftercare following surgery on the circulatory system (principal); R93.89 Abnormal findings on diagnostic imaging of other specified body structures
CPT/HCPCS: 93880

== ENCOUNTER 2024-09-04 14:16 | Outpatient (CLI) | payer MEDICARE, OTHER, SELFPAY ==
[2024-09-04 14:57] LABS: Basophils % 0.4 %; Eosinophils # 0.1 10^3/uL (0.0-0.8); Eosinophils % 1.6 %; Hematocrit 41.2 % (37-53); Lymphocytes # 2.2 10^3/uL (0.8-4.8); Lymphocytes % 30.9 %; Mean Corpuscular HGB Conc 32.3 g/dL (30-55); Mean Corpuscular Hemoglobin 29.2 pg (27-33); Mean Corpuscular Volume 90.5 fl (82-101); Mean Platelet Volume 14.2 fL (7.4-10.4); Monocytes # 0.5 10^3/uL (0.2-0.9); Monocytes % 6.4 %; Neutrophils # 4.28 10^3/uL (1.8-7.7); Neutrophils % 60.4 %; Nucleated Red Blood Cells % 0 %; Platelet Count 113 10^3/cmm (157-399); Red Blood Count 4.55 10^6/uL (3.85-5.65); Red Cell Distribution Width 14.9 % (12.1-15.1); White Blood Count 7.08 10^3/uL (3.29-11.43)
[2024-09-04 15:01] LABS: Erythrocyte Sedimentation Rate 25 mm/hr (0-10)
[2024-09-04 15:08] LABS: Slide Review Slide Review Perform
[2024-09-04 15:18] LABS: Alanine Aminotransferase 12 U/L (0-41); Albumin Level 3.9 g/dL (3.5-5.2); Alkaline Phosphatase 64 U/L (40-130); Aspartate Amino Transferase 19 U/L (0-40); C Reactive Protein 4.5 mg/L (0.0-4.9); Globulin 2.7 g/dL (1.3-4.6); Total Bilirubin 0.5 mg/dL (0.15-1.2); Total Protein 6.6 g/dL (6.6-8.7); Uric Acid 5.2 mg/dL (3.4-7.0)
== END 2024-09-04 14:17 | disposition home or self-care (01) ==
LOC: LAB 14:19
PROVIDERS: PCP Family Medicine; Visit Provider Internal Medicine Rheumatology
DX: M06.00 Rheumatoid arthritis without rheumatoid factor, unspecified site (principal); Z79.899 Other long term (current) drug therapy; M10.9 Gout, unspecified
CPT/HCPCS: 36415; 80076; 82565; 84550; 85025; 85651; 86140

== ENCOUNTER → 2024-11-07 09:52 | Outpatient (BNVA) | payer MEDICARE, OTHER, SELFPAY | PROVIDERS: PCP Family Medicine; Visit Provider Internal Medicine Rheumatology | DX: M10.9 Gout, unspecified (principal); Z79.899 Other long term (current) drug therapy | CPT/HCPCS: 99214 ==

== ENCOUNTER → 2024-11-12 09:56 | Outpatient (BNVA) | payer MEDICARE, OTHER, SELFPAY | PROVIDERS: PCP Family Medicine; Visit Provider Nurse Practitioner Family | DX: I11.0 Hypertensive heart disease with heart failure (principal); I50.22 Chronic systolic (congestive) heart failure; I25.10 Atherosclerotic heart disease of native coronary artery without angina pectoris; Z95.810 Presence of automatic (implantable) cardiac defibrillator; I73.9 Peripheral vascular disease, unspecified; Z87.891 Personal history of nicotine dependence | CPT/HCPCS: 99213 ==

== ENCOUNTER 2025-02-02 15:09 | Emergency (ER) | payer MEDICARE, OTHER, SELFPAY ==
--- NOTE | 2025-02-02 15:22 | ED_ITS ---
HPI - CPR 2 General: Chief Complaint: Cardiac Arrest/CPR Stated Complaint: code blue Time Seen by Provider: 02/02/25 15:20 History of Present Illness: 79-year-old man with a history of conges tive heart failure, inflammatory arthritis, gout, coronary artery disease, carotid artery stenosis, hypertension, hyperlipidemia who presents to the emergency room unresponsive in a car. reports that he got unresponsive about 10 to 15 minutes prior to arrival here. They got in the car and he went unresponsive. Upon arrival the front of the hospital personnel discovered him in the car and he was pulseless. The drove him around to the front of the emergency room where he was brought into the emergency room still pulseless and unresponsive. Related Data Home Medications ?Medication ?Instructions ?Recorded ?Confirmed aspirin 81 mg tablet,delayed 81 mg PO DAILY 06/26/19 0 11/12/24 release (Adult Aspirin Regimen) esomeprazole magnesium 40 mg 40 mg PO DAILY 07/14/21 0 11/12/24 capsule,delayed release diclofenac sodium 1 % topical gel 4 g topical QID PRN Rash 02/23/23 11/12/24 Previous Rx's ?Medication ?Instructions ?Recorded potassium chloride 10 mEq 20 meq (2 x 10 mEq) PO BID # 360 05/07/24 capsule,extended release caps furosemide 40 mg tablet 40 mg PO BID #180 tabs 07/17 metoprolol succinate 25 mg 12.5 mg (1/2 x 25 mg) PO DA REMEDIOS #90 07/17/24 tablet,extended release 24 hr tabs sacubitril 49 mg-valsartan 51 mg See Rx Instructions . Route 11/01/24 tablet (Entresto) .COMPLEX #60 tabs colchicine 0.6 mg tablet 0.6 mg PO DAILY #90 tabs febuxostat 40 mg tablet 40 mg PO DAILY #90 tabs 10/25 10/19 hydroxychloroquine 200 mg tablet 200 mg PO BID #180 ta bs 11/07/24 prednisone 20 mg tablet See Rx Instructions PO .COMP MYLES 11/07/24 PRN joint pain flare #30 tabs prednisone 5 mg tablet 5 mg PO DAILY #90 tabs 11/07 simvastatin 80 mg tablet See Rx Instructions .Route 0 12/18/24 .COMPLEX #90 tabs Allergies Allergy/AdvReac Type Severity Reaction Status Date / Time codeine Allergy unknown Verified 11/12/24 10:34 ezetimibe (From Vytorin) Allergy shortness Verified 11/12/24 10:34 of breath rosuvastatin (From Crestor) Allergy shortness Verified 11/12/24 10:34 of breath Review of Systems 2 General: Reports: ROS unobtainable due to mental status PFSH ED 2 PFSH: Medical History (Updated 02/02/25 @ 15:40 by Mariel Spangler MD) Congestive heart failure Chest pain Osteoarthritis of hands, bilateral Melanoma Postop carotid endarterectomy surveillance, encounter for Leg edema Inflammatory arthritis High risk medication use Osteoarthritis Gout, arthritis Atherosclerotic heart disease of [place] coronary artery without angina pectoris Pt is not interested any follow up stress test Other specified rheumatoid arthritis, multiple sites CAD (coronary artery disease) Bilateral carotid artery stenosis Hypertension Hyperlipidemia FHx: total knee replacement Osteoarthritis involving multiple joints on both sides of body Seronegative rheumatoid arthritis Surgical History AICD (automatic cardioverter/defibrillator) present [employer] Hx of cataract extraction 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 H/O carotid endarterectomy RIGHT SIDE 04/2019 Family History Father CAD (coronary artery disease) [place], unknown age of onset Stroke Brother CAD (coronary artery disease) unknown age of onset Mother Chronic kidney disease (CKD) Other Family history of premature coronary artery disease Hypertension Denies family history of Rheumatoid arthritis Diabetes Lupus Clotting disorder Dementia Suicide Anesthesia complication Bleeding disorder Lung disease Cancer Social History Smoking and tobacco/nicotine status: former use of tobacco/nicotine Quit status (tobacco/nicotine): has quit using Year quit tobacco: 1979 Alcohol intake: never Substance/Drug Use: never Marital status: Physical Exam 2 Narrative: EXAM NARRATIVE: General: ill appearing, Skin: pale Head: Normocephalic, atraumatic. Neck: trachea midline. Eye: pupils fixed and dilated Ears, nose, mouth and throat: Patient has no breathing effort Cardiovascular: No palpable pulse. Respiratory: coarse, equal, mechanically ventilated. Gastrointestinal: Soft, Non distended Musculoskeletal: no deformity. Neurological: non responsive. Psychiatric: unable to evaluate. MDM - Cardiac Arrest/CPR Medical Decision Making CPR was initiated in the parking lot. This was continued in stretcher into the emergency room and continued in the emergency room. IV access was established quickly. CPR continued. Epinephrine administered per ACLS. Time of code was about 12 minutes. Patient was intubated. He remained in PEA. At about 10 minutes I went out and spoke to his who asked that we stop. She expressed understanding that likely the amount of time he was down and his continued lack of a pulse would mean certain that even if he did regain a heart rate he would not recover. She said he would not want this. CPR was stopped. See nursing documentation for full details of times and medications administered. Endotracheal intubation Time: See nursing documentation Confirmed: Patient, procedure, and site correct. Consent: , Emergent. Indication: Respiratory failure. Procedural sedation: Succinylcholine. Monitoring: Cardiac, blood pressure, continuous pulse oximetry. Preparation: Pre oxygenated, Inline stabilization of cervical spine maintained, Ensured proper cuff inflation. Technique: Oral intubation: A 7.5 ET tube was inserted, glydescope, visualized cords and ett passing through cords. . Confirmation of tube placement: Bilateral chest rise, Positive color change indicated on end title CO2. Post procedure exam: Equal breath sounds. Complications: None. Performed by: Self. Time of : 1521. On 02/02/25 Lab Data 02/02/25 15:19 02/02/25 15:19 Laboratory Results WBC Cancelled 02/02/25 15:19 Corrected WBC Cancelled 02/02/25 15:19 RBC Cancelled 02/02/25 15:19 Hgb Cancelled 02/02/25 15:19 Hct Cancelled 02/02/25 15:19 MCV Cancelled 02/02/25 15:19 MCH Cancelled 02/02/25 15:19 MCHC Cancelled 02/02/25 15:19 RDW Cancelled 02/02/25 15:19 Plt Count Cancelled 02/02/25 15:19 MPV Cancelled 02/02/25 15:19 Gran % Cancelled 02/02/25 15:19 Neut % (Auto) Cancelled 02/02/25 15:19 Lymph % (Auto) Cancelled 02/02/25 15:19 [place] % (Auto) Cancelled 02/02/25 15:19 Eos % (Auto) Cancelled 02/02/25 15:19 Baso % (Auto) Cancelled 02/02/25 15:19 Neut # (Auto) Cancelled 02/02/25 15:19 Lymph # (Auto) Cancelled 02/02/25 15:19 [place] # (Auto) Cancelled 02/02/25 15:19 Eos # (Auto) Cancelled 02/02/25 15:19 Baso # (Auto) Cancelled 02/02/25 15:19 Absolute Gran (auto) Cancelled 02/02/25 15:19 Nucleated RBC % (auto) Cancelled 02/02/25 15:19 Nucleated RBCs # Cancelled 02/02/25 15:19 Sodium Cancelled 02/02/25 15:19 Potassium Cancelled 02/02/25 15:19 Chloride Cancelled 02/02/25 15:19 Carbon Dioxide Cancelled 02/02/25 15:19 Anion Gap Cancelled 02/02/25 15:19 BUN Cancelled 02/02/25 15:19 Creatinine Cancelled 02/02/25 15:19 GFR Calculation Cancelled 02/02/25 15:19 Glucose Cancelled 02/02/25 15:19 POC Glucose 143 mg/dL (70-110) H 02/02/25 15:19 Calculated Osmolality Cancelled 02/02/25 15:19 Calcium Cancelled 02/02/25 15:19 Total Bilirubin Cancelled 02/02/25 15:19 AST Cancelled 02/02/25 15:19 ALT Cancelled 02/02/25 15:19 Alkaline Phosphatase Cancelled 02/02/25 15:19 Total Protein Cancelled 02/02/25 15:19 Albumin Cancelled 02/02/25 15:19 Globulin Cancelled 02/02/25 15:19 No radiology studies performed this visit Discharge Plan Discharge Patient Disposition: Clinical Impression: Cardiac arrest, Probable Cause of Probable cause of : Myocardial Infarction Coding Level of Care Code ED Template Cutter for Tracy Mackay
--- NOTE | 2025-02-02 15:32 | PC.NURSE ---
PT arrives code blue. PT had no pulse at time of arrival to facility. CPR initiated in vehicle, stretcher brought to parking lot and ACLS protocol continued. see code sheet.
--- NOTE | 2025-02-02 16:21 | PC.NURSE ---
[facility] contacted on patient expiration. [facility] stated they will review patients chart and call back on patients eligibility. Luis Swann [facility] plastic panel installer contacted and patient has been released from him.
== END 2025-02-02 15:21 | disposition expired ==
PROVIDERS: Emergency Provider Emergency Medicine; PCP Family Medicine
DX: I46.9 Cardiac arrest, cause unspecified (principal); Z87.891 Personal history of nicotine dependence; E78.5 Hyperlipidemia, unspecified; I25.10 Atherosclerotic heart disease of native coronary artery without angina pectoris; I11.0 Hypertensive heart disease with heart failure; I50.9 Heart failure, unspecified; Z85.820 Personal history of malignant melanoma of skin
CPT/HCPCS: 31500; 36416; 82962; 85025; 99285